=== PATIENT | male | born 1960 | race Caucasian/White ===

== ENCOUNTER 2017-09-30 11:43 | Inpatient (IN) | payer SELFPAY ==
--- NOTE | 2017-09-30 12:54 | RAD ---
HISTORY: Fall, right hip pain COMPARISONS: None VIEWS: 6, Frontal view of the pelvis with frontal and frog-leg views of the right hip with frontal views of the distal right femur FINDINGS: BONE DENSITY: Normal. BONES: There is a nondisplaced fracture of the right femoral neck. JOINTS: There is mild osteoarthritis of the hips. ALIGNMENT: There is no dislocation. SOFT TISSUES: There is peripheral arterial calcification. OTHER FINDINGS: Degenerative changes are noted of the spine. IMPRESSION: NONDISPLACED RIGHT FEMORAL NECK FRACTURE. PERIPHERAL ARTERIAL DISEASE.
--- NOTE | 2017-09-30 13:30 | RAD ---
HISTORY: Hip fracture COMPARISONS: May 05, 2014 VIEWS: 3: Frontal and lateral views of the chest. FINDINGS: CARDIOMEDIASTINAL SILHOUETTE: The cardiomediastinal silhouette is normal. ALESSANDRO: The alessandro are normal. PLEURA: The costophrenic angles are sharp. No pleural abnormalities are noted. LUNG PARENCHYMA: There is hyperinflation with flattening of the diaphragm and expansion of the AP diameter of the chest. ABDOMEN: The upper abdomen is clear. There is no subphrenic gas. BONES AND SOFT TISSUES: There is postsurgical change to the left scapula. OTHER: None. IMPRESSION: HYPERINFLATION, CONSISTENT WITH COPD. NO ACTIVE CARDIOPULMONARY DISEASE.
[2017-09-30 13:38] LABS: Hematocrit 34 % (42-52); Hemoglobin 11.8 g/dl (14.0-18.0); Mean Corpuscular HGB Conc 34 g/dl (31-36); Mean Corpuscular Hemoglobin 41 pg (27-31); Mean Corpuscular Volume 121 fL (80-94); Mean Platelet Volume 8.6 um3 (7.4-10.4); Platelet Count 412 10^3/ul (150-450); Red Blood Count 2.84 10^6/ul (4.0-5.4); Red Cell Distribution Width 16 % (10.5-15); White Blood Count 10.4 10^3/ul (3.5-10.8)
[2017-09-30 14:00] LABS: EGFR Non-African American 114.8 (>60)
[2017-09-30 14:25] LABS: ABS Basophils 0.1 10^3/ul (0-0.2); ABS Eosinophils 0.1 10^3/ul (0-0.6); ABS Lymphocytes 2.1 10^3/ul (1.0-4.8); ABS Monocytes 1.4 10^3/ul (0-0.8); ABS Neutrophils 6.7 10^3/ul (1.5-7.7); ABS Nucleated RBC 0 10^3/ul; Eosinophil % 0.6 % (0-6); Lymphocyte % 20.3 % (25-47); Nucleated Red Blood Cells % 0
[2017-09-30] MEDS: Heparin VIAL(*) 5000 UNITS/ML VIAL (FIVE THOUSAND) SUBCUT SCH ×2 (15:45→23:08)
[2017-09-30] MEDS ORDERED: Potassium Chlor TAB* 20 MEQ TAB.ER PO ONE (15:52)
[2017-09-30] MEDS ORDERED: Morphine VIAL* 4 MG/ML VIAL (1 ml vial) IV PRN (16:15)
[2017-09-30 16:47] LABS: INR 0.93 (0.77-1.02)
[2017-09-30] MEDS: oxyCODONE TAB* 5 MG TAB PO PRN ×2 (16:59→21:57)
[2017-09-30] MEDS ORDERED: LORazepam TAB(*) 1 MG PO SCH (17:00)
--- NOTE | 2017-09-30 17:56 | ED ---
Lawanda Pedraza Gabriel, scribed for Wilber Bojorquez MD on 09/30/17 at 1206 . Lower Extremity - HPI Summary HPI Summary: This patient is a 57 year old M [facility] s/p fall that occurred a week ago. Pt states he missed a step which caused him to fall down the rest of the stairs, injuring his right hip. He is currently ambulating with crutches and he states he waited so long to be seen due to lack of health insurance. The patient rates the pain 6/10 in severity. - History of Current Complaint Stated Complaint: FALL/RT HIP INJURY Time Seen by Provider: 09/30/17 12:01 Hx Obtained From: Patient Mechanism Of Injury: Fall From Height Of: Onset of Pain: Immediate Onset/Duration: Still Present Severity Initially: Moderate Severity Currently: Moderate Pain Intensity: 6 Pain Scale Used: 0-10 Numeric Timing: Constant Associated Signs And Symptoms: Positive: Negative - fever Able to Bear Weight: No - Allergies/Home Medications Allergies/Adverse Reactions: Allergies Allergy/AdvReac Type Severity Reaction Status Date / Time No Known Allergies Allergy Verified 05/05/14 14:57 Home Medications: Home Medications NK [No Home Medications Reported] 09/30/17 [History Confirmed 09/30/17] PMH/Surg Hx/FS Hx/Imm Hx Respiratory History: Denies: Hx Chronic Obstructive Pulmonary Disease (COPD) GI History: Denies: Hx Gall Bladder Disease History: Denies: Hx Chronic Renal Failure Musculoskeletal History: Denies: Hx Arthritis, Hx Rheumatoid Arthritis EENT History: Denies: Hx Deafness Neurological History: Denies: Hx Dementia, Hx Developmental Delay - Family History Known Family History: Negative: Renal Disease, Respiratory Disease, Seizure Disorder - Social History Occupation: Employed Part-time Lives: With Family Alcohol Use: None Substance Use Type: Reports: None Smoking Status (MU): Heavy Every Day Tobacco Smoker Review of Systems Negative: Fever Positive: Other - left hip pain All Other Systems Reviewed And Are Negative: Yes Physical Exam - Summary Physical Exam Summary: VITAL SIGNS: Reviewed. GENERAL: Patient is a well-developed and nourished male who is lying comfortable in the stretcher. Patient is not in any acute respiratory distress. HEAD AND FACE: No signs of trauma. No ecchymosis, hematomas or skull depressions. No sinus tenderness. EYES: PERRLA, EOMI x 2, No injected conjunctiva, no nystagmus. EARS: Hearing grossly intact. Ear canals and tympanic membranes are within normal limits. MOUTH: Oropharynx within normal limits. NECK: Supple, trachea is midline, no adenopathy, no JVD, no carotid bruit, no c- spine tenderness, neck with full ROM. CHEST: Symmetric, no tenderness at palpation LUNGS: Clear to auscultation bilaterally. No wheezing or crackles. CVS: Regular rate and rhythm, S1 and S2 present, no murmurs or gallops appreciated. ABDOMEN: Soft, non-tender. No signs of distention. No rebound no guarding, and no masses palpated. Bowel sounds are normal. EXTREMITIES: there is decreased ROM in the right hip secondary to pain, no deformity or ecchymosis. NEURO: Alert and oriented x 3. No acute neurological deficits. Speech is normal and follows commands. SKIN: Dry and warm Triage Information Reviewed: Yes Vital Signs On Initial Exam: Initial Vitals Temp Pulse Resp BP Pulse Ox 97.8 F 96 18 141/103 98 09/30/17 12:03 09/30/17 12:03 09/30/17 12:03 09/30/17 12:03 09/30/17 12:03 Vital Signs Reviewed: Yes Diagnostics - Vital Signs Vital Signs Temp Pulse Resp BP Pulse Ox 09/30/17 12:03 97.8 F 96 18 141/103 98 - Laboratory Lab Results: Lab Results 09/30/17 09/30/17 09/30/17 Range/Units 13:23 13:23 13:23 WBC 10.4 (3.5-10.8) 10^3/ul RBC 2.84 L (4.0-5.4) 10^6/ul Hgb 11.8 L (14.0-18.0) g/dl Hct 34 L (42-52) % MCV 121 H (80-94) fL MCH 41 H (27-31) pg MCHC 34 (31-36) g/dl RDW 16 H (10.5-15) % Plt Count 412 (150-450) 10^3/ul MPV 8.6 (7.4-10.4) um3 Neut % (Auto) 64.4 (38-83) % Lymph % (Auto) 20.3 L (25-47) % [place] % (Auto) 13.6 H (0-7) % Eos % (Auto) 0.6 (0-6) % Baso % (Auto) 1.1 (0-2) % Absolute Neuts (auto) 6.7 (1.5-7.7) 10^3/ul Absolute Lymphs (auto) 2.1 (1.0-4.8) 10^3/ul Absolute Monos (auto) 1.4 H (0-0.8) 10^3/ul Absolute Eos (auto) 0.1 (0-0.6) 10^3/ul Absolute Basos (auto) 0.1 (0-0.2) 10^3/ul Absolute Nucleated RBC 0 10^3/ul Nucleated RBC % 0 Macrocytosis 2+ Sodium 136 L (139-145) mmol/L Potassium 3.3 L (3.5-5.0) mmol/L Chloride 102 (101-111) mmol/L Carbon Dioxide 28 (22-32) mmol/L Anion Gap 6 (2-11) mmol/L BUN 26 H (6-24) mg/dL Creatinine 0.71 (0.67-1.17) mg/dL Est GFR ( Amer) 147.6 (>60) Est GFR (Non-Af Amer) 114.8 (>60) BUN/Creatinine Ratio 36.6 H (8-20) Glucose 83 (70-100) mg/dL Lactic Acid 1.0 (0.5-2.0) mmol/L Calcium 8.6 (8.6-10.3) mg/dL Magnesium 1.4 L (1.9-2.7) mg/dL Iron 33 L (50-212) ug/dL TIBC 199 L (250-450) mcg/dL % Saturation 17 (15-55) % Unsat Iron Binding 166 ug/dL Transferrin 142 L (203-362) mg/dL Ferritin 383.1 H (24-336) ng/mL Total Bilirubin 0.50 (0.2-1.0) mg/dL AST 19 (13-39) U/L ALT 9 (7-52) U/L Alkaline Phosphatase 105 H (34-104) U/L C-Reactive Protein 2.99 (< 5.00) mg/L Total Protein 6.5 (6.4-8.9) g/dL Albumin 3.0 L (3.2-5.2) g/dL Globulin 3.5 (2-4) g/dL Albumin/Globulin Ratio 0.9 L (1-3) Prealbumin 14 L (18-38) mg/dL Vitamin B12 330 (180-914) pg/mL Folate 4.24 (>3.99) ng/mL Result Diagrams: 09/30/17 13:23 09/30/17 13:23 Lab Statement: Any lab studies that have been ordered have been reviewed, and results considered in the medical decision making process. - Radiology femur xray Radiology Interpretation Completed By: Radiologist - NONDISPLACED RIGHT FEMORAL NECK FRACTURE. PERIPHERAL ARTERIAL DISEASE. ED physician has reviewed this radiology report. hip/pelvis xray Radiology Interpretation Completed By: Radiologist - NONDISPLACED RIGHT FEMORAL NECK FRACTURE. PERIPHERAL ARTERIAL DISEASE. ED physician has reviewed this radiology report. CXR Radiology Interpretation Completed By: Radiologist - HYPERINFLATION, CONSISTENT WITH COPD. NO ACTIVE CARDIOPULMONARY DISEASE. ED physician has reviewed this radiology report. - EKG 13:32 Cardiac Rate: NL EKG Rhythm: Sinus Rhythm - at 77 BPM EKG Interpretation: no ST elevations EKG Comparison: No Significant Change - Similar 05-05-14 Lower Extremity Course/Dx - Course Assessment/Plan: This patient is a 57-year-old male who presents to the emergency department with the complaint of left hip pain. X-ray of the hip impression: Nondisplaced right femoral neck fracture. I discussed the case with Dr. Holt who accepted the patient for admission. I also discussed the case with Dr. Jc from orthopedics - Diagnoses Provider Diagnoses: Femur fracture, right - Physician Notifications Discussed Care Of Patient With: Aletha Holt Time Discussed With Above Provider: 13:40 Instructed by Provider To: Admit As Observation - 1545 We discussed patient care with Dr. Jc and they have agreed to come consult on the pt. Discharge - Sign-Out/Discharge Documenting (check all that apply): Discharge/Admit/Transfer - [facility] to [facility] - Discharge Plan Condition: Fair Disposition: ADMITTED TO [facility] - Billing Disposition and Condition Condition: FAIR Disposition: [facility] The documentation as recorded by the Lawanda mojica Gabriel accurately reflects the service I personally performed and the decisions made by me, Wilber Bojorquez MD.
[2017-09-30] MEDS ORDERED: Magnesium Sulfate IV* 3 GM in NS 0.9% 100 ML* 100 ML IVPB ONE (18:30)
--- NOTE | 2017-09-30 20:15 | HP ---
HISTORY AND PHYSICAL: DATE OF ADMISSION: 09/30/17 PROVIDER: Ceferino Foote NP ATTENDING PHYSICIAN: Dr. Yañez * (report dictated by Ceferino Foote NP). PRIMARY CARE PROVIDER: [facility]. CHIEF COMPLAINT: Right hip pain. HISTORY OF PRESENT ILLNESS: Mr. Kwong is a 57-year-old male with a past medical history of hypertension, tobacco abuse, who presents to the emergency department today with complaint of right hip pain with a fall approximately 7 to 9 days ago, found to have a nondisplaced right femoral neck fracture. The patient reports that he was walking downstairs where he missed a step, caused him to fall down the rest of the stairs landing down on his right hip. He has been ambulating with crutches and was hoping it would get better. Due to the fact that he does not have health insurance, he was concerned to the come to the emergency department. Today, he presented due to continued pain, reporting right hip pain 8/10 in severity. He denies passing out during the fall. No history of syncope. Denies cardiac history other than his hypertension, which he currently does not take medication for. He reports that he was on medication, but due to his blood pressures being consistently systolically around the 140s, he states that he was taken off the medication due to he was experiencing hypotension. He reports tobacco abuse smoking approximately a pack a day. Otherwise, he states that he has been in good health and has not been hospitalized recently. He reports that in the last 2 to 3 years, he has lived in [place] and [place], and now is currently living with his mother. He denies ever having shortness of breath or chest pain at rest or with exertion. Again, no history of CHF or history of [place]. PAST MEDICAL HISTORY: 1. Hypertension. 2. Tobacco abuse. PAST SURGICAL HISTORY: 1. Cataract surgery. 2. Appendectomy. 3. Shoulder repair. CURRENT MEDICATIONS: None. ALLERGIES: No known allergies. FAMILY HISTORY: His father had history of hypertension and history of stomach cancer and which he is decreased at the age of 67. Mother has history of hypertension. SOCIAL HISTORY: The patient reports a [id number] history, smoking approximately a pack a day. He reports he drinks beer a couple of times a week and occasional "shots" of alcohol. He is currently living with his mother. He has a daughter, who currently lives in [place]. He lists his mother, Rajni Kwong, as the healthcare proxy. Her number is [phone]. REVIEW OF SYSTEMS: A 14-point review of systems was performed. All the pertinent positives and negatives are mentioned in the history of present illness. Otherwise are negative. PHYSICAL EXAMINATION GENERAL APPEARANCE: A thin, 57-year-old male, sitting up in bed, alert and oriented x3, in no acute distress. VITAL SIGNS: Temperature 98.1, heart rate 72, respirations 18, O2 sat 99% on room air, blood pressure 148/74. HEENT: Head is normocephalic, atraumatic. Pupils are equal and reactive to light. Oropharynx is clear. Moist mucous membranes. NECK: Supple. LUNGS: Clear to auscultation bilaterally. Good aeration throughout. CARDIAC: S1, S2. Regular rate and rhythm. No murmur, rub, or gallop appreciated. No lower extremity edema noted. ABDOMEN: Soft, nontender, nondistended. Normal bowel sounds throughout. EXTREMITIES: The patient has his right lower extremity guarded. He is holding it at a slight angle and does not want to straighten it due to pain. extremities, he has full range of motion. 2+ DP pulses bilaterally. NEURO: Cranial nerves II through XII are grossly intact. SKIN: The patient has noted ecchymosis on his lower aspect of his arms bilaterally in different stages of healing. Otherwise, other skin is warm, pink , dry, and intact. No open areas noted. DIAGNOSTIC STUDIES/LAB DATA: WBC is 10.4, RBC 2.84, Hgb 11.8, Hct 34, MCV 121 , MCH 41, MCHC 34, RDW 16, platelet count 412. Sodium 136, potassium 3.3, chloride 102, carbon dioxide 28, anion gap 6, BUN 26, creatinine 0.71, glucose 83, lactic acid 1.0, calcium 8.6. Total bilirubin 0.50, AST 19, ALT 9, alkaline phosphatase 105. C-reactive protein 2.99, total protein 6.5, albumin 3.0. Chest x-ray, impression: Hyperinflation consistent with COPD, no active cardiopulmonary disease. Hip/pelvis x-ray, impression: Nondisplaced right femoral neck fracture. Peripheral arterial disease. EKG: Sinus rhythm with a right bundle branch block with a rate of 177. In comparison to prior EKG, no acute ST changes noted. ASSESSMENT AND PLAN: Mr. Kwong is a 57-year-old male with a past medical history of hypertension, tobacco abuse, who presents to the emergency department with complaint of right hip pain with report of a fall approximately 7 to 9 days ago falling down stairs landing on his right hip, now found to have a nondisplaced right femoral neck fracture. 1. Femoral neck fracture. The patient will be admitted to short stay surgical unit. The orthopedic team has been consulted. Pain management, bowel regimen. The patient's revised cardiac risk index for preoperative risk is 0.4% of major cardiac event. As far as further cardiac workup, he is optimized from a cardiac standpoint to proceed with surgery. The patient is noted to have diffuse ecchymosis on his bilateral upper extremities. Plan to check INR/PTT and we will add these on to ED labs. The patient's MCV is noted to be quite elevated. I question if he is being honest about how much he drinks as it is noted his albumin is low, he appears malnourished and his electrolytes are abnormal. We will add on alcohol level to his ED labs. The patient does only report that he drinks a couple of times a week. We will monitor for signs of withdrawal, and place him on the [place] protocol at this time. 2. Hypertension, uncontrolled. The patient reports that normally his blood pressure is systolically in the 140s to 150s and does not take medication due to it making him "hypotensive." Plan to start the patient on Norvasc 5 mg p.o. daily and most likely, he will need to be discharged home with close followup with his primary care provider. 3. Tobacco abuse. The patient has refused nicotine supplementation. Smoking cessation. 4. Electrolyte abnormalities. Replace potassium. Add on magnesium level. Recheck electrolytes in the morning. 5. Anemia. We will add on iron studies and B12 level. 6. DVT prophylaxis. Heparin subcu. 7. Code status. Full code. TIME SPENT: Approximately 60 minutes was spent on this admission. CEFERINO FOOTE, NICOLE [id number]/[facility] #: [id number] LUIGI
[2017-09-30] MEDS: Acetaminophen TAB* 325 MG PO PRN (21:57)
[2017-09-30] MEDS ORDERED: Heparin VIAL(*) 5000 UNITS/ML VIAL (FIVE THOUSAND) SUBCUT ONE (23:00)
--- NOTE | 2017-10-01 01:18 | CONS ---
CONSULTATION REPORT: DATE OF CONSULT: 09/30/17 ATTENDING PHYSICIAN: Edy Ma MD CHIEF COMPLAINT: Right hip pain. HISTORY OF PRESENT ILLNESS: Briefly, Gregg Kwong is a 57-year-old right- hand dominant male who fell down the stairs approximately 1 week ago. He states that he had a lot of pain, but he was able to get by with crutches. The pain started to get a lot worse and he came to the ER for evaluation today. In the ER, he was diagnosed with a mildly displaced femoral neck fracture. He is admitted to Medicine for the workup. PAST MEDICAL HISTORY: Per the patient, he tells me he has hypertension. PAST SURGICAL HISTORY: Appendectomy as well as left shoulder surgery. History of cataract removal. MEDICATIONS: He states he has been taking aspirin for his hip pain. ALLERGIES: None. SOCIAL HISTORY: He is unemployed. He lives with his mother. He is right-hand dominant. 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 He smokes about 1 pack per day. He drinks on the weekends. He did not quantify how much he drinks. FAMILY HISTORY: Significant for cancer in his father, stomach cancer, who had . Mother has high blood pressure; she is living. He has 4 brothers and 2 sisters. REVIEW OF SYSTEMS: A 14-point review of systems was reviewed with the patient, significant for easy bruising. No shortness of breath or chest pain. He does endorse right hip pain and difficulty weightbearing. He denies any numbness or tingling. No fevers or chills. Otherwise, remainder of 14-point review of systems is negative. PHYSICAL EXAM: Temperature 98.7, pulse 80, respiratory rate 17, O2 is 100% on room air, blood pressure 139/100. He is in no acute distress. He is well developed and well nourished. He is pleasant, alert and oriented, and cooperative for the exam. EOMI. Chest is clear. He is respiring comfortably. Heart is regular rate and rhythm. Abdomen is soft and nontender. Examination of the right hip demonstrates the skin is intact. There is no erythema or warmth. He has pain on internal and external rotation. He is able to flex to about 45 degrees comfortably. He can flex and extend his knee and ankle. He is sensate to light touch about the first dorsal web space; medial, lateral, dorsal and plantar foot. He has 2+ PT pulse. His calf is soft and nontender. DIAGNOSTIC STUDIES/LAB DATA: X-rays were reviewed that demonstrate a mildly displaced femoral neck fracture with no evidence of arthritis. Full length femur films were also reviewed that demonstrates no propagation of the fracture , no distal fracture, no masses. Labs: White blood cell 10.4, hematocrit of 34, platelet count of 412. INR is pending. Sodium is 136, potassium 3.3, chloride 102, carbon dioxide 28, BUN 26 , creatinine 0.71, glucose 83. Lactic acid 1. Alk phos 105. CRP is 2.99. Albumin 3.0. Other labs are pending. ASSESSMENT AND PLAN: Gregg Kwong is a 57-year-old male who fell approximately 1 week ago down the stairs and sustained a right hip fracture. I explained to the patient that typically this would have been treated rather urgently with open reduction and internal fixation. Because it is a week out, we talked about open reduction and internal fixation versus a total hip arthroplasty. I explained that open reduction internal fixation may not heal well. He did disrupt his vascular supply and I would pin him in situ. I would not be sure how well he would do afterwards. He could have persistent pain. So , I talked about total hip replacement, which is an option for him to get him back to mobilizing well, and because he is a community ambulator, he will do well most likely. We also talked about how I would be careful about being aggressive with activities. We also talked about smoking cessation, as he does have an extensive smoking history. We talked about risks and benefits of surgery. Risks include but not limited to bleeding; infection; damage to nerves , vessels, and surrounding structures; wound nonhealing; persistent pain; need for further surgery; scarring; stiffness; incomplete relief of symptoms; recurrent fracture; dislocation; risks of DVT; risks of anesthesia. We talked about limb length and equality as well. He verbalized understanding. Questions were invited and answered. Discussed with the medicine team that he is a candidate for total hip arthroplasty. I have asked my partner, Dr. Snow, who will take care of this tomorrow as the patient is cleared. We will plan for surgery tomorrow again with Dr. Snow which would be right total hip arthroplasty. [id number]/[facility] #: [id number] [facility]ONE HEALTHLatisha
[2017-10-01] MEDS: oxyCODONE TAB* 5 MG TAB PO PRN (05:10)
[2017-10-01 06:15] LABS: ABS Basophils 0.3 10^3/ul (0-0.2); ABS Eosinophils 0.2 10^3/ul (0-0.6); ABS Lymphocytes 2.5 10^3/ul (1.0-4.8); ABS Monocytes 1.7 10^3/ul (0-0.8); ABS Neutrophils 4.8 10^3/ul (1.5-7.7); ABS Nucleated RBC 0 10^3/ul; Eosinophil % 2.4 % (0-6); Hematocrit 31 % (42-52); Hemoglobin 10.8 g/dl (14.0-18.0); Lymphocyte % 26.5 % (25-47); Mean Corpuscular HGB Conc 35 g/dl (31-36); Mean Corpuscular Hemoglobin 42 pg (27-31); Mean Corpuscular Volume 120 fL (80-94); Mean Platelet Volume 8.6 um3 (7.4-10.4); Nucleated Red Blood Cells % 0; Platelet Count 371 10^3/ul (150-450); Red Cell Distribution Width 16 % (10.5-15); White Blood Count 9.6 10^3/ul (3.5-10.8)
[2017-10-01 06:26] LABS: EGFR Non-African American 120.6 (>60)
[2017-10-01] MEDS ORDERED: Famotidine IV* 10 MG/ML 2 ML (20 mg) IV ONE (07:00)
[2017-10-01] MEDS: amLODIPine TAB* 5 MG PO SCH (08:56)
[2017-10-01] MEDS: Thiamine TAB* 100 MG TAB PO SCH (08:56)
[2017-10-01] MEDS: Multivitamins/Minerals TAB PO SCH (08:56)
[2017-10-01] MEDS: Folic Acid TAB* 1 MG PO SCH (08:56)
[2017-10-01] MEDS ORDERED: Buffered Lidocaine 0.9% SYRIN* 5 ML/SYR SYRINGE INTRADERM ONE (13:02)
[2017-10-01] MEDS ORDERED: Dexamethasone IV* 4 MG/ML 1 ML (4 MG) IV SLOW PU ONE (13:02)
[2017-10-01] MEDS ORDERED: Levalbuterol 0.63MG/3ML NEB* UNIT OF USE INH ONE ×2 (13:02→13:09)
[2017-10-01] MEDS ORDERED: Ondansetron ODT TAB* 4 MG PO ONE (13:07)
[2017-10-01] MEDS ORDERED: Dexamethasone IV* 4 MG/ML 1 ML (4 MG) ONE (13:09)
[2017-10-01] MEDS ORDERED: Ondansetron ODT TAB* 4 MG ONE (13:09)
--- NOTE | 2017-10-01 13:14 | RAD ---
HISTORY: Right hip fracture COMPARISONS: Plain film dated September 30, 2017 TECHNIQUE: Multiple contiguous axial CT images are obtained of the pelvis, with coronal and sagittal multiplanar reconstructions, without intravenous contrast administration. FINDINGS: BONE DENSITY: Normal. BONES: Again noted is a nondisplaced fracture through the right femoral neck. JOINTS: There is mild osteoarthritis of the hips. MUSCULATURE: Unremarkable ALIGNMENT: There is no dislocation. SOFT TISSUES: There is atherosclerosis of the abdominal aorta. OTHER FINDINGS: There is anterolateral marginal osteophyte formation at L4-L5 with sclerotic reactive endplate changes. IMPRESSION: NONDISPLACED RIGHT FEMORAL NECK FRACTURE.
--- NOTE | 2017-10-01 13:57 | PN ---
Subjective Date of Service: 10/01/17 Objective Active Medications: Acetaminophen (Tylenol Tab*) 650 mg PO Q4H PRN Amlodipine Besylate (Norvasc Tab*) 5 mg PO DAILY [facility] Dexamethasone Sodium Phosphate (Decadron Iv*) 8 mg IV SLOW PU ONCE ONE Docusate Sodium (Colace Cap*) 100 mg PO DAILY PRN Folic Acid (Folvite Tab*) 1 mg PO DAILY [facility] Sodium Chloride (Ns 0.9% 1000 Ml*) 1,000 mls @ 75 mls/hr IV PER RATE PAM Lactated Ringer's (Lactated Ringers 1000 Ml Bag*) 1,000 mls @ 125 mls/hr IV PER RATE PAM Levalbuterol HCl (Xopenex 0.63mg/3ml Neb*) 0.63 mg INH ONCE ONE Lidocaine/Sodium Bicarbonate (Buffered Lidocaine 0.9% Syrin*) 0.2 ml INTRADERM ONCE ONE Lorazepam (Ativan Tab(*)) 0 - 6 mg PO .PER [facility] PROTOCOL [facility] Morphine Sulfate (Morphine Vial*) 2 mg IV Q4H PRN Multivitamins/Minerals (Theragran/Minerals Tab*) 1 tab PO DAILY [facility] Ondansetron HCl (Zofran Odt Tab*) 4 mg PO ONCE ONE Oxycodone HCl (Roxycodone Tab*) 5 mg PO Q4H PRN Thiamine HCl (Vitamin B-1 Tab*) 100 mg PO DAILY [facility] Vital Signs: Temp Pulse Resp BP Pulse Ox 97.4 F 63 16 124/75 99 10/01/17 11:16 10/01/17 11:16 10/01/17 11:16 10/01/17 11:16 10/01/17 11:16 Oxygen Devices in Use Now: None Result Diagrams: 10/01/17 05:39 10/01/17 05:39 Additional Lab and Data: . Assess/Plan/Problems-Billing Assessment: Mr. Kwong is a 57 yo M with a PMH of hypertension and tobacco abuse who was admitted on 09/30/17 with a right hip fracture. - Patient Problems (1) Closed right hip fracture Comment: - Plan for surgery today with Dr. Snow. - Pain meds prn. - PT/OT starting tomorrow. - Monitor H/H. (2) Hypertension Comment: - SBP 120s. - Continue amlodipine, started on admission. (3) Alcohol abuse Comment: - ? if patient abuses alcohol beyond what he stated on admission. - Continue WAM protocol, folate and thiamine for now. (4) Anemia Comment: - Hgb 10.8 today, MCV 120. - Vitamin B12, folate levels normal. Iron low but % saturation normal, ferritin elevated but difficult to interpret in setting of recent fracture. Check stool occult blood. (5) Tobacco abuse (6) DVT prophylaxis Comment: - Per ortho. (7) Full code status Comment:
[2017-10-01] MEDS ORDERED: Heparin VIAL(*) 5000 UNITS/ML VIAL (FIVE THOUSAND) SUBCUT SCH (14:00)
[2017-10-01] MEDS ORDERED: ceFAZolin 2 GM PREMIX (*) 2 GM/50 ML BAG IVPB ONE ×2 (14:03→15:02)
[2017-10-01] MEDS ORDERED: Lidocaine 2% PF * 5 ML VIAL ONE (14:25)
[2017-10-01] MEDS ORDERED: fentaNYL* 50 MCG/ML 2 ML VIAL (100 MCG VIAL) ONE (14:58)
[2017-10-01] MEDS ORDERED: Midazolam* 1 MG/ML 5 ML VIAL (5 MG) ONE ×2 (14:58→16:14)
[2017-10-01] MEDS ORDERED: ROPIVACAINE 5 MG/ML 30 ML BTL (0.5%) ONE (15:10)
[2017-10-01] MEDS ORDERED: Ropivacaine (OR use only) 2 MG/ML 10 ML ONE (15:11)
[2017-10-01] MEDS ORDERED: Gentamicin ADULT (*) 40 MG/ML VIAL ONE (17:00)
[2017-10-01] MEDS ORDERED: Glycopyrrolate IV* 0.2 MG/ML 1 ML VIAL ONE (17:19)
[2017-10-01] MEDS ORDERED: Midazolam* 1 MG/ML 10 ML VIAL (10 MG) ONE (17:38)
[2017-10-01] MEDS ORDERED: ceFAZolin 1 GM in Dextrose (*) 1 GM/50 ML BAG IVPB ONE (17:53)
[2017-10-01] MEDS ORDERED: Metoprolol Tartrate IV* 1 MG/ML 5 ML VIAL ONE (18:11)
[2017-10-01] MEDS ORDERED: HYDROmorphone INJ* 1 MG/ML CARPUJECT SYRINGE IV PRN (18:13)
[2017-10-01] MEDS ORDERED: Ondansetron INJ* 2 MG/ML VIAL IV PRN (18:13)
[2017-10-01] MEDS ORDERED: Naloxone* 0.4 MG/ML 1 ML VIAL IV PRN (18:13)
[2017-10-01] MEDS ORDERED: fentaNYL* 50 MCG/ML 2 ML VIAL (100 MCG VIAL) IV PRN (18:13)
[2017-10-01] MEDS ORDERED: DiMENhydriNATE IV* 50 MG/ML VIAL IV PUSH PRN (18:13)
--- NOTE | 2017-10-01 18:15 | PN ---
Progress Note - Progress Note Date of Service: 10/01/17 Note: Chart reviewed. Patient is a 57 yo male with PMH of hypertension who was admitted on 09/30/17 with a right femoral neck fracture. Patient not available at the time of my assessment as he was in the operating room this afternoon. Hospital Medicine will be available overnight for any questions or concerns. Plan to eval again in AM.
--- NOTE | 2017-10-01 19:43 | RAD ---
INDICATION: Right total hip arthroplasty COMPARISON: CT abdomen pelvis October 01, 2017 TECHNIQUE: A single intraoperative crosstable lateral was obtained of the right hip FINDINGS: The femoral shaft component of the hip prosthesis is anatomically aligned. The acetabular cup appears to be in position. The femoral head prosthesis is not yet seen. Remaining visualized bones are intact and appropriately aligned. IMPRESSION: Anatomic alignment of the components of the right hip prosthesis installed at the time of the image.
--- NOTE | 2017-10-01 20:17 | RAD ---
INDICATION: Status post right total hip arthroplasty COMPARISON: CT pelvis October 01, 2017 TECHNIQUE: 3 views of the right hip were obtained. FINDINGS: The recently installed right hip prosthesis is anatomically aligned in the AP and lateral projections. There is no evidence of periprostatic fracture. Remaining visualized bones are intact and appropriately aligned. Incidental note is made of coarse atherosclerotic calcification overlying the bilateral visualized femoral arteries. IMPRESSION: 1. Anatomic alignment of right hip prosthesis. 2. Incidentally noted is coarse atherosclerotic calcification overlying the bilateral femoral arteries.
[2017-10-01] MEDS: Acetaminophen TAB* 325 MG PO PRN (22:40)
[2017-10-01] MEDS: NS 0.9% 1000 ML* 1,000 ML IV SCH ×2 (22:41)
[2017-10-02] MEDS: oxyCODONE TAB* 5 MG TAB PO PRN ×4 (01:02→17:50)
--- NOTE | 2017-10-02 01:05 | CONS ---
CONSULTATION REPORT: DATE OF CONSULT: 10/01/17 CHIEF COMPLAINT: Right hip pain. HISTORY OF PRESENT ILLNESS: Mr. Kwong is a 57-year-old gentleman, who fell down some stairs approximately 1 week ago. He reports that he injured his right hip and had 8/10 pain. He did not present for medical care because of lack of insurance and financial reasons. He used crutches to ambulate. After 1 week, the pain became severe, 10/10 pain. He came to [facility] Emergency Room for evaluation and was diagnosed with a displaced femoral neck fracture. He was admitted to the hospitalist group for preoperative workup. My partner, Dr. Ma, was on-call and did consult me to discuss total hip arthroplasty with the patient due to the delayed presentation and the patient's age. PAST MEDICAL HISTORY: Hypertension, question of alcohol abuse, tobacco abuse. PAST SURGICAL HISTORY: Cataract excision, appendectomy, prior shoulder surgery. HOME MEDICATIONS: None. ALLERGIES: No known drug allergies. No known latex allergy. FAMILY HISTORY: Hypertension and cancer. SOCIAL HISTORY: The patient smokes 1 pack of cigarettes per day. He drinks beer a couple of times a week and occasional shots of alcohol. He lives with his mother. He has a daughter who lives in [place]. He normally ambulates independently. He is currently not working. REVIEW OF SYSTEMS: Fourteen systems are reviewed with the patient today. Positive for right hip pain. Negative for fevers, chills, chest pain, shortness of breath, nausea, vomiting, headache, or dizziness. Otherwise, the patient reports review of systems is negative or not relevant. PHYSICAL EXAM: Vitals: Temperature 97.5, pulse 57, blood pressure 127/82. General: The patient is a thin male, in no apparent distress, alert and oriented x3, pleasant mood and appropriate affect. Gait is not assessed. HEENT : Atraumatic, normocephalic. Pupils are equal and reactive to light. Chest: Unlabored breathing. Bilateral upper extremities: His skin is intact with scattered ecchymoses. He forward flexes the shoulders to 140 degrees without pain. Right lower extremity: He has the hip flexed to 45 degrees. Any rotation of the hip causes severe pain. Thigh is soft and compressible. Distally, neurovascularly intact with dorsiflexion, plantarflexion and EHL. He has full sensation to light touch in all nerve distributions and a 2+ palpable DP pulse. Left lower extremity: The patient flexes the hip up to 100 degrees without any pain. Distally, neurovascularly intact. DIAGNOSTIC STUDIES/LAB DATA: Labs from 10/01/17 show white blood cells 9.6, hematocrit 31, platelets 371,000. INR 0.93, APTT 39.4. Sodium 133, potassium 3.6, BUN and creatinine 21 and 0.68, calcium 8. Radiographs: Multiple plain films of the hip and femur show a displaced femoral neck fracture. Question of an acetabular fracture on one of the pelvic views. CT of the pelvis is obtained, which excludes a fracture of the acetabulum. ASSESSMENT AND PLAN: Mr. Kwong is a 57-year-old gentleman 1 week status post fall with delayed presentation of a right displaced femoral neck fracture. I am asked to see the patient by my colleague. Today, the patient and I discussed at length that he has the option of open reduction and internal fixation of this fracture versus total hip arthroplasty. After giving the patient the risks and benefits of each surgery, the patient would like to proceed with right total hip arthroplasty. He understands the risks of surgery include but are not limited to bleeding, infection, damage to nearby structures , continued pain, need for further surgery, intraoperative fracture, nerve palsy , hardware failure or loosening, dislocation, leg length discrepancy, stroke, heart attack, blood clot, and . He wishes to proceed. Due to a history of possible alcohol abuse, I will be using the MDM implant for greater stability. The patient understands this and agrees. He will be n.p.o. , on bedrest until the surgery. [id number]/[facility] #: [id number] [facility]
[2017-10-02] MEDS: ceFAZolin 1 GM in Dextrose (*) 1 GM/50 ML BAG IVPB SCH ×3 (01:58→17:49)
[2017-10-02] MEDS: Acetaminophen TAB* 325 MG PO PRN ×3 (03:59→17:51)
[2017-10-02] MEDS ORDERED: NS 0.9% 1000 ML* 1,000 ML IV SCH (06:23)
[2017-10-02 06:59] LABS: ABS Basophils 0.1 10^3/ul (0-0.2); ABS Eosinophils 0 10^3/ul (0-0.6); ABS Lymphocytes 0.9 10^3/ul (1.0-4.8); ABS Monocytes 2.2 10^3/ul (0-0.8); ABS Neutrophils 10.1 10^3/ul (1.5-7.7); ABS Nucleated RBC 0 10^3/ul; Eosinophil % 0 % (0-6); Hematocrit 28 % (42-52); Hemoglobin 9.4 g/dl (14.0-18.0); Lymphocyte % 6.5 % (25-47); Mean Corpuscular HGB Conc 34 g/dl (31-36); Mean Corpuscular Hemoglobin 41 pg (27-31); Mean Corpuscular Volume 121 fL (80-94); Mean Platelet Volume 8.5 um3 (7.4-10.4); Nucleated Red Blood Cells % 0.1; Platelet Count 357 10^3/ul (150-450); Red Blood Count 2.29 10^6/ul (4.0-5.4); Red Cell Distribution Width 16 % (10.5-15); White Blood Count 13.3 10^3/ul (3.5-10.8)
[2017-10-02 07:07] LABS: EGFR Non-African American 122.7 (>60)
--- NOTE | 2017-10-02 08:02 | OP ---
DATE OF OPERATION: 10/01/17 - ROOM #339 DATE OF : 62 SURGEON: Markie Lovelace MD ANESTHESIOLOGIST: Dr. Shukla. ANESTHESIA: Spinal. PRE-OP DIAGNOSIS: Urinary retention. POST-OP DIAGNOSES: Urinary retention, urethral stricture. OPERATIVE PROCEDURE: Cystoscopy, internal urethrotomy, and placement of [place] Gracia catheter. INDICATION: Gregg Kwong is a 57-year-old gentleman who had been admitted for a right hip fracture. He was on the operating table to have a right total hip replacement and I was called because of inability to place a Gracia catheter in spite of multiple attempts with some resulting bleeding. OPERATIVE FINDINGS: 1. Strictures mid to proximal bulbar urethra with multiple false passages. 2. Cloudy residual urine in the bladder with multiple bladder diverticula. POSTOPERATIVE CONDITION: Stable. CATHETER: 22-[place] tip Gracia. DESCRIPTION OF PROCEDURE: Patient was placed in dorsal lithotomy position. Sequential compression devices were in place and functioning. Initial cystoscopy revealed a normal distal urethra. In the mid to proximal bulbar urethra, multiple false passages were noted and there was a fairly narrow stricture noted. Using an internal urethrotome, the stricture was incised at the 12 o'clock position and then a wire could be advanced more proximally. Cystoscopy was then performed after completion of the urethrotomy and cystoscopy revealed cloudy residual urine within the bladder and multiple bladder diverticula including a large one on the right and left sides of the bladder. Visualization of the bladder was somewhat suboptimal because of the cloudy residual urine and the findings of chronic inflammation. The bladder was emptied and irrigated and a 22-[place] Gracia was introduced without difficulty. The plan is to leave the Gracia catheter in for about a week and for the patient to have outpatient followup in my office afterwards possibly for a repeat cystoscopy as an outpatient. [id number]/[facility] #: [id number] MTDD
[2017-10-02] MEDS: Multivitamins/Minerals TAB PO SCH (08:49)
[2017-10-02] MEDS: Folic Acid TAB* 1 MG PO SCH (08:49)
[2017-10-02] MEDS: amLODIPine TAB* 5 MG PO SCH (08:49)
[2017-10-02] MEDS: Thiamine TAB* 100 MG TAB PO SCH (08:49)
--- NOTE | 2017-10-02 11:21 | OP ---
DATE OF OPERATION: 10/01/17 - ROOM #339 DATE OF : 62 SURGEON: Charmaine Snow MD COMPANY LABORER: JOSE ROBERTO Lopez. Ms. Goodwin did help throughout the procedure with preparation of the leg, wound retraction, and manipulation of the hip. ANESTHESIOLOGIST: Dr. Shukla. ANESTHESIA: Spinal. PRE-OP DIAGNOSIS: Displaced right femoral neck fracture. POST-OP DIAGNOSIS: Displaced right femoral neck fracture. OPERATIVE PROCEDURE: Right total hip arthroplasty. COMPLICATIONS: No complications related to the hip. Upon placement of the Gracia, urethral strictures were noted and Dr. Lovelace of Urology was consulted for cystoscopy and placement of the catheter. Please see his note. ESTIMATED BLOOD LOSS: 300 mL. SPECIMEN: Femoral head and acetabular reamings sent to Pathology. HARDWARE USED: [place] uncemented total hip arthroplasty hardware. For the cup , a 54E Tritanium cluster hole shell, two 20-mm length cancellous bone screws. For the liner, an MDM cement-less liner 42E. For the stem, an Accolade TMZF size 5.5 with a 132-degree neck. For the head, a Biolox delta ceramic V40 femoral head 28 +0 with a 28/48/42E [place] MDM X3 insert. BRIEF HISTORY/INDICATIONS: Mr. Kwong is a 57-year-old gentleman who fell down some stairs about one week ago injuring the right hip. He did not seek medical attention due to lack of insurance and used crutches. Pain became unbearable and he presented to [facility] Emergency Room with a displaced femoral neck fracture, which was 1 week old. Due to the patient's age and the week delay in treatment, the patient was given different surgical options. He chose to have right total hip arthroplasty. Informed consent was obtained from the patient. He understood the risks of surgery included, but were not limited to bleeding, infection, damage to nearby structures, continued pain, need for further surgery, intraoperative fracture, nerve palsy, hardware failure or loosening, dislocation, leg length discrepancy, stroke, heart attack , blood clot, and . He wished to proceed. INTRAOPERATIVE FINDINGS: Intraoperatively, the patient was noted to have significant osteopenia. He had a displaced femoral neck fracture with significant comminution, he had moderate degenerative changes of the acetabulum with osteophyte formation and some cartilage loss. DESCRIPTION OF PROCEDURE: Mr. Kwong was identified in the preanesthesia unit. His right lower extremity was marked as the correct operative side. Informed consent was signed and placed in the chart. The patient was taken to the operating room and placed under spinal anesthesia without difficulty. A Gracia catheter was placement was unsuccessful. Dr. Lovelace of Urology was consulted. He used cystoscopy and placed a Gracia catheter. Next, the patient was placed in left lateral decubitus position on the peg board. All bony prominences were well padded. Right lower extremity was prepped and draped in usual sterile fashion. Preop time-out was made to correctly identify the patient 's side and site. Appropriate perioperative antibiotics were given within 1 hour of incision. A 12-cm posterior hip incision was made with a 10 blade and carried down to the lateral fascial layer. The lateral fascial layer was incised in line with the skin incision. Charnley retractor was placed. The piriformis and conjoint tendons were elevated off the posterolateral femur with electrocautery and tagged with #5 Ethibond. Electrocautery was also used to make a catheter flap in the posterolateral corner and this was also tagged to #5 Ethibond. The fracture hematoma was encountered. The femoral neck fracture was easily visualized and was clearly displaced. Proximal femur was carefully prevented and oscillating saw was used to make a femoral neck clean-up cut. Comminuted bony pieces were carefully removed. The femur was retracted anteriorly. Corkscrew was used to remove the femoral head. Acetabulum was noted to have some moderate degenerative changes. After appropriate placement of retractors, the acetabulum was easily visualized. Long-handled knife was used to sharply remove the acetabular labrum. Acetabulum was sequentially reamed up to a size 53. Bleeding subchondral bone bed was obtained. 53 trial had excellent fit. Tritanium cluster hole shell 54E was chosen as the final implant. This was impacted into the acetabulum without difficulty. The cup was stable with appropriate anteversion and abduction angle. Two screws were placed in the superior posterior quadrant for extra stability. These were both length of 20 mm. An MDM cement-less 42E was then chosen. This was impacted into the acetabulum without difficulty. Stability of the liner was checked and rechecked and noted to be stable. Attention was turned to preparation of the femoral canal. A femoral canal finder was used to enter the proximal femur. The femur was sequentially broached up to a size 5.5. A 132 neck trial was placed as well as a 28 +0 head trial with the appropriate insert. The hip was reduced and taken through a range of motion. The hip was stable in all positions. The soft tissue tension and leg lengths were deemed to be appropriate. The hip was carefully dislocated. All trials were removed. Final implant chosen was an Accolade TMZF size 5.5 with a 132-degree neck angle. This was impacted into the femoral canal without difficulty. There was good stability of the stem with appropriate anteversion. A 28 +0 Biolox delta ceramic V40 femoral head was chosen with a 28/48/42E catholic MDM insert. The insert and head were prepared on the side table and impacted on to the femoral neck without difficulty. Lesser troch to center of the femoral head measured 55 mm. The hip was reduced and taken through range of motion. The hip was stable in all positions. The wound was copiously irrigated with sterile saline. Previously tagged capsule and tendons were reapproximated to the posterolateral femur. The lateral fascial layer was closed using interrupted #1 Vicryls. The rest of the incision was closed in a layered fashion using 0 and 2-0 Vicryls. Skin was closed using running 3-0 Monocryl and Dermabond. Sterile Adaptic, 4x4s, and paper tape were used to cover the incision. The patient's anesthesia was reversed without difficulty. He was taken to the PACU in stable condition. Intended weightbearing will be weightbearing as tolerated. Intended DVT prophylaxis will be Lovenox that will not start until 24 hours after the Urology procedure per Dr. Lovelace's request. [id number]/[facility] #: [id number] [facility]
--- NOTE | 2017-10-02 12:22 | PN ---
Progress Note - Progress Note Date of Service: 10/02/17 SOAP: Subjective: []Patient seen at bedside. He denies RLE pain or numbness. Denies CP or SOB. Denies dizziness or nausea. Objective: [] Vital Signs Temp 98.2 F 10/02/17 11:08 Pulse 94 10/02/17 11:08 Resp 18 10/02/17 13:07 BP 95/56 10/02/17 11:08 Pulse Ox 95 10/02/17 11:08 Intake & Output 10/01/17 10/02/17 10/02/17 18:59 06:59 18:59 Intake Total 335 972 5465 Output Total 25 450 100 Balance 915 200 983 Intake: IV Fluids 940 650 ABX - CEFAZOLIN 50 LR 600 NS (0.9%) 940 IVPB 1083 ABX - CEFAZOLIN 58 NS (0.9%) 1025 Oral 0 0 Output: Gracia 450 100 Residual 25 Gracia 22 Fr 25 Other: Estimated Void Medium # Bowel Movements 1 Estimated Stool Amount Medium # Voids 2 Laboratory Last Values WBC 13.3 10^3/ul (3.5-10.8) H 10/02/17 06:39 RBC 2.29 10^6/ul (4.0-5.4) L 10/02/17 06:39 Hgb 9.4 g/dl (14.0-18.0) L 10/02/17 06:39 Hct 28 % (42-52) L 10/02/17 06:39 MCV 121 fL (80-94) H 10/02/17 06:39 MCH 41 pg (27-31) H 10/02/17 06:39 MCHC 34 g/dl (31-36) 10/02/17 06:39 RDW 16 % (10.5-15) H 10/02/17 06:39 Plt Count 357 10^3/ul (150-450) 10/02/17 06:39 MPV 8.5 um3 (7.4-10.4) 10/02/17 06:39 Neut % (Auto) 76.3 % (38-83) 10/02/17 06:39 Lymph % (Auto) 6.5 % (25-47) L 10/02/17 06:39 [place] % (Auto) 16.5 % (0-7) H 10/02/17 06:39 Eos % (Auto) 0 % (0-6) 10/02/17 06:39 Baso % (Auto) 0.7 % (0-2) 10/02/17 06:39 Absolute Neuts (auto) 10.1 10^3/ul (1.5-7.7) H 10/02/17 06:39 Absolute Lymphs (auto) 0.9 10^3/ul (1.0-4.8) L 10/02/17 06:39 Absolute Monos (auto) 2.2 10^3/ul (0-0.8) H 10/02/17 06:39 Absolute Eos (auto) 0 10^3/ul (0-0.6) 10/02/17 06:39 Absolute Basos (auto) 0.1 10^3/ul (0-0.2) 10/02/17 06:39 Absolute Nucleated RBC 0 10^3/ul 10/02/17 06:39 Nucleated RBC % 0.1 10/02/17 06:39 Macrocytosis 2+ 09/30/17 13:23 INR (Anticoag Therapy) 0.93 (0.77-1.02) 09/30/17 16:00 APTT 39.4 seconds (26.0-36.3) H 09/30/17 16:00 Sodium 132 mmol/L (139-145) L 10/02/17 06:39 Potassium 4.4 mmol/L (3.5-5.0) 10/02/17 06:39 Chloride 105 mmol/L (101-111) 10/02/17 06:39 Carbon Dioxide 24 mmol/L (22-32) 10/02/17 06:39 Anion Gap 3 mmol/L (2-11) 10/02/17 06:39 BUN 17 mg/dL (6-24) 10/02/17 06:39 Creatinine 0.67 mg/dL (0.67-1.17) 10/02/17 06:39 Est GFR ( Amer) 157.8 (>60) 10/02/17 06:39 Est GFR (Non-Af Amer) 122.7 (>60) 10/02/17 06:39 BUN/Creatinine Ratio 25.4 (8-20) H 10/02/17 06:39 Glucose 89 mg/dL (70-100) 10/02/17 06:39 Lactic Acid 1.0 mmol/L (0.5-2.0) 09/30/17 13:23 Calcium 7.9 mg/dL (8.6-10.3) L 10/02/17 06:39 Magnesium 1.4 mg/dL (1.9-2.7) L 09/30/17 13:23 Iron 33 ug/dL (50-212) L 09/30/17 13:23 TIBC 199 mcg/dL (250-450) L 09/30/17 13:23 % Saturation 17 % (15-55) 09/30/17 13:23 Unsat Iron Binding 166 ug/dL 09/30/17 13:23 Transferrin 142 mg/dL (203-362) L 09/30/17 13:23 Ferritin 383.1 ng/mL (24-336) H 09/30/17 13:23 Total Bilirubin 0.50 mg/dL (0.2-1.0) 09/30/17 13:23 AST 19 U/L (13-39) 09/30/17 13:23 ALT 9 U/L (7-52) 09/30/17 13:23 Alkaline Phosphatase 105 U/L (34-104) H 09/30/17 13:23 C-Reactive Protein 2.99 mg/L (< 5.00) 09/30/17 13:23 Total Protein 6.5 g/dL (6.4-8.9) 09/30/17 13:23 Albumin 3.0 g/dL (3.2-5.2) L 09/30/17 13:23 Globulin 3.5 g/dL (2-4) 09/30/17 13:23 Albumin/Globulin Ratio 0.9 (1-3) L 09/30/17 13:23 Prealbumin 14 mg/dL (18-38) L 09/30/17 13:23 Vitamin B12 330 pg/mL (180-914) 09/30/17 13:23 Folate 4.24 ng/mL (>3.99) 09/30/17 13:23 TSH 0.83 mcIU/mL (0.34-5.60) 09/30/17 13:23 Free T4 1.09 ng/dL (0.61-1.12) 09/30/17 13:23 Free T3 3.40 pg/mL (2.5-3.9) 09/30/17 13:23 Total T3 0.63 ng/mL (0.87-1.78) L 09/30/17 13:23 General: Well appearing, NAD RLE: Dressing CDI without erythema surrounding. Thigh is soft. DF/PF intact. Sensation intact to light touch distally. DP2+. Capillary refill less than two seconds distally. Assessment: []POD 1 sp right total hip arthroplasty Plan: []PT/OT WBAT Lovenox x 30 days Gracia to remain in place x 1 week, fu Dr Lovelace outpatient in 1 week for cystoscopy
[2017-10-02] MEDS ORDERED: Nicotine Inhaler* 10 MG AMP INH PRN (14:58)
[2017-10-02] MEDS ORDERED: Mouth Piece, Nicotine* 1 EACH CARTRIDGE INH PRN (14:58)
[2017-10-02] MEDS ORDERED: Nicotine GUM* 2 MG PO PRN (14:58)
--- NOTE | 2017-10-02 15:00 | PN ---
Subjective Date of Service: 10/02/17 Interval History: Mr. Kwong reports doing well today. He notes that his hip pain is reasonably controlled. He denies chest pain, SOB, nausea, or abdominal pain. Objective Active Medications: Acetaminophen (Tylenol Tab*) 650 mg PO Q4H PRN Amlodipine Besylate (Norvasc Tab*) 5 mg PO DAILY PAM Docusate Sodium (Colace Cap*) 100 mg PO DAILY PRN Enoxaparin Sodium (Lovenox(*)) 30 mg SUBCUT DAILY@1800 PAM Folic Acid (Folvite Tab*) 1 mg PO DAILY PAM Cefazolin Sodium/Dextrose (Kefzol 1 Gm In Dextrose Duplex (*)) 1 gm in 50 mls @ 100 mls/hr IVPB Q8H PAM Sodium Chloride (Ns 0.9% 1000 Ml*) 1,000 mls @ 100 mls/hr IV PER RATE PAM Lorazepam (Ativan Tab(*)) 0 - 6 mg PO .PER [facility] PROTOCOL [facility] Morphine Sulfate (Morphine Vial*) 2 mg IV Q4H PRN Multivitamins/Minerals (Theragran/Minerals Tab*) 1 tab PO DAILY PAM Naloxone HCl (Narcan*) 0.08 mg IV Q2M PRN Oxycodone HCl (Roxycodone Tab*) 5 mg PO Q4H PRN Thiamine HCl (Vitamin B-1 Tab*) 100 mg PO DAILY [facility] Vital Signs: Temp Pulse Resp BP Pulse Ox 98.2 F 94 18 95/56 95 10/02/17 11:08 10/02/17 11:08 10/02/17 13:07 10/02/17 11:08 10/02/17 11:08 Oxygen Devices in Use Now: None Appearance: Male sitting up in chair in NAD Eyes: No Scleral Icterus Ears/Nose/Mouth/Throat: Mucous Membranes Moist Neck: Trachea Midline Respiratory: Symmetrical Chest Expansion and Respiratory Effort, Clear to Auscultation Cardiovascular: NL Sounds; No Murmurs; No JVD, No Edema Abdominal: NL Sounds; No Tenderness; No Distention Lymphatic: No Cervical Adenopathy Extremities: No Edema Skin: No Rash or Ulcers Neurological: Alert and Oriented x 3, NL Muscle Strength and Tone Nutrition: Taking PO's Result Diagrams: 10/02/17 06:39 10/02/17 06:39 Assess/Plan/Problems-Billing Assessment: Mr. Kwong is a 57 yo male with a PMH of hypertension who was admitted on with a right hip fracture. - Patient Problems (1) Closed right hip fracture Comment: - POD # 1. - Pain meds prn. - PT/OT. - Monitor H/H. (2) Hypertension Comment: - SBP 90s. - Hold amlodipine, started on admission. (3) Alcohol abuse Comment: - ? if patient abuses alcohol beyond what he stated on admission. - Has not scored for W[facility] protocol, continue folate and thiamine for now. (4) Anemia Comment: - Hgb 10.8 today, MCV 120. - Vitamin B12, folate levels normal. Iron low but % saturation normal, ferritin elevated but difficult to interpret in setting of recent fracture. Check stool occult blood. (5) Tobacco abuse Comment: - Nicotine replacement available prn. (6) DVT prophylaxis Comment: - Lovenox per ortho. (7) Full code status Comment: Status and Disposition: Inpatient. Anticipate may need rehab.
[2017-10-02 15:30] LABS: ABS Basophils 0.1 10^3/ul (0-0.2); ABS Eosinophils 0 10^3/ul (0-0.6); ABS Lymphocytes 0.5 10^3/ul (1.0-4.8); ABS Neutrophils 8.4 10^3/ul (1.5-7.7); ABS Nucleated RBC 0 10^3/ul; Eosinophil % 0.2 % (0-6); Hematocrit 28 % (42-52); Hemoglobin 9.3 g/dl (14.0-18.0); Lymphocyte % 4.4 % (25-47); Mean Corpuscular HGB Conc 34 g/dl (31-36); Mean Corpuscular Hemoglobin 41 pg (27-31); Mean Corpuscular Volume 121 fL (80-94); Mean Platelet Volume 8.5 um3 (7.4-10.4); Nucleated Red Blood Cells % 0; Platelet Count 324 10^3/ul (150-450); Red Blood Count 2.27 10^6/ul (4.0-5.4); Red Cell Distribution Width 16 % (10.5-15)
[2017-10-02] MEDS ORDERED: Enoxaparin(*) 30 MG/0.3 ML SYR SUBCUT SCH (18:00)
[2017-10-02] MEDS: Docusate CAP* 100 MG PO PRN (19:39)
[2017-10-03] MEDS: Acetaminophen TAB* 325 MG PO PRN ×2 (02:49→09:33)
[2017-10-03] MEDS: oxyCODONE TAB* 5 MG TAB PO PRN ×2 (02:50→09:34)
--- NOTE | 2017-10-03 08:47 | PN ---
Subjective Date of Service: 10/03/17 Interval History: Mr. Kwong denies complaint and is eager to move on to rehab. Objective Active Medications: Acetaminophen (Tylenol Tab*) 650 mg PO Q4H PRN Device (Nicotine Mouth Piece*) 1 each INH .USE WITH NICOTROL PRN Docusate Sodium (Colace Cap*) 100 mg PO DAILY PRN Enoxaparin Sodium (Lovenox(*)) 30 mg SUBCUT DAILY@1800 PAM Folic Acid (Folvite Tab*) 1 mg PO DAILY PAM Sodium Chloride (Ns 0.9% 1000 Ml*) 1,000 mls @ 100 mls/hr IV PER RATE PAM Lorazepam (Ativan Tab(*)) 0 - 6 mg PO .PER [facility] PROTOCOL PAM Morphine Sulfate (Morphine Vial*) 2 mg IV Q4H PRN Multivitamins/Minerals (Theragran/Minerals Tab*) 1 tab PO DAILY PAM Nicotine (Nicotine Inhaler*) 10 mg INH Q2H PRN Nicotine Polacrilex (Nicotine Gum*) 2 mg PO Q2H PRN Oxycodone HCl (Roxycodone Tab*) 5 mg PO Q4H PRN Thiamine HCl (Vitamin B-1 Tab*) 100 mg PO DAILY PAM Vital Signs: Temp Pulse Resp BP Pulse Ox 98.1 F 79 16 113/64 96 10/03/17 03:25 10/03/17 03:25 10/03/17 05:22 10/03/17 03:25 10/03/17 03:25 Oxygen Devices in Use Now: None Appearance: Male sitting up in chair in NAD Eyes: No Scleral Icterus Ears/Nose/Mouth/Throat: Mucous Membranes Moist Neck: Trachea Midline Respiratory: Symmetrical Chest Expansion and Respiratory Effort, Clear to Auscultation Cardiovascular: NL Sounds; No Murmurs; No JVD, No Edema Abdominal: NL Sounds; No Tenderness; No Distention Lymphatic: No Cervical Adenopathy Extremities: No Edema Skin: No Rash or Ulcers Neurological: Alert and Oriented x 3, NL Muscle Strength and Tone Nutrition: Taking PO's Result Diagrams: 10/02/17 15:17 10/02/17 06:39 Assess/Plan/Problems-Billing Assessment: Mr. Kwong is a 57 yo male with a PMH of hypertension who was admitted on with a right hip fracture. - Patient Problems (1) Closed right hip fracture Comment: - POD # 2. - Pain meds prn. - PT/OT. - Hgb 9.3. (2) Hypertension Comment: - SBP 90s. - Hold amlodipine, started on admission. (3) Alcohol abuse Comment: - ? if patient abuses alcohol beyond what he stated on admission. - Has not scored for [place] protocol, continue folate and thiamine for now. (4) Anemia Comment: - Hgb 10.8 today, MCV 120. - Vitamin B12, folate levels normal. Iron low but % saturation normal, ferritin elevated but difficult to interpret in setting of recent fracture. Check stool occult blood. - Will need close follow up. (5) Tobacco abuse Comment: - Nicotine replacement available prn. (6) DVT prophylaxis Comment: - Lovenox per ortho. (7) Full code status Comment: Status and Disposition: Inpatient. Discharge to [facility].
[2017-10-03 09:01] VITALS: BP 117/66
[2017-10-03] MEDS: Multivitamins/Minerals TAB PO SCH (09:34)
[2017-10-03] MEDS: Docusate CAP* 100 MG PO PRN (09:34)
[2017-10-03] MEDS: Thiamine TAB* 100 MG TAB PO SCH (09:34)
[2017-10-03] MEDS: Folic Acid TAB* 1 MG PO SCH (09:34)
--- NOTE | 2017-10-04 09:16 | DS ---
CC: [facility].* DISCHARGE SUMMARY: DATE OF ADMISSION: 09/30/17 DATE OF DISCHARGE: 10/03/17 PRIMARY CARE PROVIDER: At [facility]. ATTENDING PHYSICIAN: Aletha Yañez MD * (dictation provided by Chanell Wiggins NP ). PRIMARY DIAGNOSES: Right femoral neck fracture, status post right total hip arthroplasty. SECONDARY DIAGNOSES: 1. Hypertension. 2. Tobacco abuse. PAST SURGICAL HISTORY: Cataract surgery, appendectomy, shoulder repair. MEDICATIONS AT THE TIME OF DISCHARGE: 1. Tylenol p.r.n. 2. Colace p.r.n. 3. Lovenox 30 mg subcutaneously daily. 4. Folic acid 1 mg p.o. daily. 5. Nicotine gum and/or inhaler p.r.n. 6. Oxycodone 5 mg p.r.n. 7. Thiamine 100 mg p.o. daily. HOSPITAL COURSE: Mr. Kwong is a 57-year-old male with past medical history of hypertension, who presented to the hospital on 09/30/17 after a fall at home with concern for right hip pain. Please see the dictated H and P from Dora Cardoza NP for complete details. In brief, patient reported that he had fallen several days earlier, but out of concern for lack of insurance he delayed coming to the emergency room. When here, he was found to have a right femoral neck fracture, his labs were remarkable for an anemia with a hemoglobin of 11.8 with macrocytosis and an MCV of 121. The remainder of his labs were unremarkable. Mr. Kwong went on for surgery with Dr. Sonw on 10/01/17 during which time he had a right total hip arthroplasty. I refer you to that operative note for complete details, but he tolerated that procedure well. He did require cystoscopy with internal urethrotomy and placement of a [facility] tip Gracia catheter due to strictures and the recommendation from Dr. Lovelace was that the patient leave the Gracia catheter in for about a week and to have outpatient followup for repeat cystoscopy as an outpatient. Mr. Kwong is doing well. His hemoglobin today is 9.3. His vital signs are stable. He is mobilizing well with physical therapy, but has been deemed to need further rehabilitation before returning home and has been accepted to [facility]. Mr. Kwong is medically stable for discharge to home. I again note his anemia showing again on arrival his hemoglobin was 11.8 with a macrocytic picture. I did check iron studies, which showed iron 33, with percent iron saturation 17, ferritin was 383.1, which is difficult to interpret in the setting of a recent hip fracture. His folate was normal as was his B12, which was 330. He states he has never had a colonoscopy before. He denies dark or tarry stools. I do recommend that he needs close followup at the time of discharge with his primary care physician for continued workup of anemia. I also note that he was initially started on amlodipine here in the hospital for high blood pressure, but this was discontinued after his blood pressure was running systolically in the 90s. He will need to continue to follow up with this to see if he warrants treatment for hypertension once he is recovered from the hip fracture. Mr. Kwong is medically stable for discharge to [facility]. DISPOSITION: To [facility]. DIET: Regular. ACTIVITY: As tolerated. FOLLOWUP PLANS: Please follow up with the providers in [facility] regarding your anemia and hypertension. TIME SPENT: Approximately 60 minutes was spent on the discharge of this patient , more than half the time spent with the patient at the bedside reviewing the events leading up to and during this hospitalization, performing the physical examination, and reviewing the plan of care. CHANELL WIGGINS, NICOLE [id number]/[facility] #: [id number] LUIG[facility]
== END 2017-10-03 10:15 | DRG 470 ==
LOC: ED 11:43 → SSU 13:45
PROVIDERS: ADMIT Internal Medicine; ATTEND Internal Medicine
PROC: 0T9B80Z Drainage of Bladder with Drainage Device, Via Natural or Artificial Opening Endoscopic (ICD-10-PCS; 2017-10-01)
PROC: 0SR903A Replacement of Right Hip Joint with Ceramic Synthetic Substitute, Uncemented, Open Approach (ICD-10-PCS; principal; 2017-10-01 16:00)
PROC: 0T7D8ZZ Dilation of Urethra, Via Natural or Artificial Opening Endoscopic (ICD-10-PCS; 2017-10-01 16:00)
DX: S72.001A Fracture of unspecified part of neck of right femur, initial encounter for closed fracture (principal); I10 Essential (primary) hypertension; F17.210 Nicotine dependence, cigarettes, uncomplicated; D53.9 Nutritional anemia, unspecified; W10.9XXA Fall (on) (from) unspecified stairs and steps, initial encounter; E87.8 Other disorders of electrolyte and fluid balance, not elsewhere classified; F10.10 Alcohol abuse, uncomplicated; N35.9 Urethral stricture, unspecified; M25.751 Osteophyte, right hip; M85.88 Other specified disorders of bone density and structure, other site; R33.9 Retention of urine, unspecified; N32.3 Diverticulum of bladder; Z98.49 Cataract extraction status, unspecified eye; Z79.01 Long term (current) use of anticoagulants; Y92.009 Unspecified place in unspecified non-institutional (private) residence as the place of occurrence of the external cause; Z82.49 Family history of ischemic heart disease and other diseases of the circulatory system; Z80.0 Family history of malignant neoplasm of digestive organs; Z56.0 Unemployment, unspecified
CPT/HCPCS: 36415; 71046; 72192; 80048; 80053; 82607; 82728; 82746; 83540; 83550; 83605; 83735; 84134; 84439; 84443; 84479; 84481; 85025; 85610; 85730; 86140; 88305; 88311; 93005; 99284; 99406; A9270-GY; C1713; C1776; G8987-GO-CK; G8988-GO-CI; J0690; J1100; J1580; J1644; J1650; J2250; J2270; J2795; J3010; J3475; J3490

== ENCOUNTER 2017-10-03 08:46 | Inpatient (IN) | payer MEDICAID ==
[2017-10-03] MEDS ORDERED: Senna TAB PO PRN (12:38)
[2017-10-03] MEDS ORDERED: Magnesium Hydroxide LIQ* 30 ML UDC PO PRN (12:38)
[2017-10-03] MEDS: Acetaminophen TAB* 325 MG PO PRN (17:54)
[2017-10-03] MEDS ORDERED: Mouth Piece, Nicotine* 1 EACH CARTRIDGE INH PRN (17:55)
[2017-10-03] MEDS ORDERED: Nicotine Inhaler* 10 MG AMP INH PRN (17:55)
[2017-10-03] MEDS: Enoxaparin(*) 40 MG/0.4 ML SYR SUBCUT SCH (17:56)
[2017-10-03] MEDS ORDERED: Enoxaparin(*) 30 MG/0.3 ML SYR SUBCUT SCH (18:00)
[2017-10-03] MEDS: Docusate CAP* 100 MG PO SCH (20:27)
--- NOTE | 2017-10-04 03:39 | HP ---
ADMISSION HISTORY AND PHYSICAL: DATE OF ADMISSION: 10/03/17 REASON FOR ADMISSION: Right hip fracture. HISTORY OF ILLNESS: Gregg Kwong is a 57-year-old male with little in the way of past medical history. He does state that he has not been to the doctor in several years. The patient recently moved back to the [facility] and is currently living with his mother. Somewhere around 09/23/17, the patient was walking downstairs and he missed the step and he fell down the rest of the stairs and landed on his right hip. He had extreme pain in his right hip, but was able to get up and walk back into the house. He borrowed crutches from a friend. He hoped it would get better on its own. When it did not, he came to the emergency room. This was about a week after he originally fell. He had the x-rays taken in the emergency room that showed a nondisplaced right femoral neck fracture. He was seen in consultation by Dr. Charmaine Snow. Dr. Snow felt he had the option of either having an ORIF of his hip versus a total hip arthroplasty. He had a CAT scan of his pelvis done also, which had shown a displaced femoral neck fracture and excluded a fracture of the acetabulum. The patient was taken to the operating room on 10/01/17 and underwent a right total hip replacement. Surgery was complicated by difficulty placing the Gracia catheter. Dr. Lovelace from the urology department had to come in and do a cystoscopy to place the catheter. The catheter has to stay in place for a week. Postop, the patient's course was benign. He was started on Lovenox for DVT prophylaxis, which he will need to stay on for 30 days postop. He was felt to have physical therapy and occupational therapy needs. He is now being admitted for inpatient rehab so that he might return to independent living. PAST MEDICAL HISTORY: Largely benign. He may have had hypertension in the past , but was not taking anything prior to admission. CURRENT MEDICATIONS: Include: 1. Lovenox. 2. Oxycodone for pain control. 3. Nicotine inhaler. ALLERGIES: No known drug allergies. SOCIAL HISTORY: The patient was a pack a day smoker. He would have a couple of drinks on the weekends. He lived in a double wide with his mother and brother. There are 3 steps to enter. He was not working prior to his fracture. REVIEW OF SYSTEMS: The patient reports no current shortness of breath or chest pain. PHYSICAL EXAMINATION VITAL SIGNS: The patient's temperature is 98.4, blood pressure 106/61, pulse is 91, respirations 16. HEENT: His extraocular movements were intact. Tongue is midline. NECK: Supple with no lymphadenopathy. LUNGS: Sound clear to auscultation bilaterally. HEART: Sounds are regular. S1, S2 are audible. ABDOMEN: Soft and nontender. EXTREMITIES: His right hip has a wound, which is clean and dry. Peripheral pulses were intact. NEUROLOGIC: He is awake, alert, oriented. Muscle strength appears to be 5/5 except the right leg, which is 3/5 secondary to pain. FUNCTIONAL EXAM: The patient transfers with mini assist. ASSESSMENT: Right total hip replacement in a patent with a right hip fracture. PLAN: Our plan is to integrate him into a comprehensive and therapeutic rehab program with the following goals: 1. Physical Therapy will work with the patient, they are going to work on functional transfer training, ambulation training with a walker. 2. Occupational Therapy will see the patient, work on his activities of daily living including toileting and toilet transfers. 3. Lovenox for DVT prophylaxis. 4. Adequate analgesia. 5. His bowels will be regulated. 6. Portable Sawyer will be closely involved to make sure that any services and equipment the patient requires are in place prior to discharge. 7. For his nicotine addiction, we will continue to use nicotine supplementation. 8. Family training as appropriate. 9. Home with appropriate services. ESTIMATED LENGTH OF STAY: 5 to 7 days. [id number]/[facility] #: [id number] [facility]
[2017-10-04] MEDS: oxyCODONE TAB* 5 MG TAB PO PRN ×3 (03:41→17:50)
[2017-10-04 06:38] LABS: EGFR Non-African American 122.7 (>60)
[2017-10-04 07:00] LABS: Monocytes % 23 % (0-7)
[2017-10-04] MEDS: Docusate CAP* 100 MG PO SCH ×2 (07:12→20:23)
[2017-10-04 07:23] LABS: White Blood Count 10.5 10^3/ul (3.5-10.8)
[2017-10-04 07:24] LABS: Hematocrit 23 % (42-52); Mean Corpuscular HGB Conc 35 g/dl (31-36); Mean Corpuscular Hemoglobin 41 pg (27-31); Mean Corpuscular Volume 119 fL (80-94); Mean Platelet Volume 8.8 um3 (7.4-10.4); Platelet Count 277 10^3/ul (150-450); Red Blood Count 1.95 10^6/ul (4.0-5.4); Red Cell Distribution Width 16 % (10.5-15)
--- NOTE | 2017-10-04 12:54 | PMRUTEAM ---
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 SHEREEN Right Hip] Physical Therapy: Current Status Bed Mobility Assistance Independent Transfer Moblility Assistance Supervision Transfer/Bed Mobility Rolling Walker Recommended Devices Ambulation Assistance Contact Guard Assist Ambulation Assistive Devices Rolling Walker Number of Feet Patient 75, 2x40 Ambulated Stairs Assistance Contact Guard Assist,Min Assist Stairs Recommended Devices Two Rails Number of Stairs 6 Occupational Therapy: Current Status Upper Body Dressing Supervision Lower Body Dressing Min Assist Bathing Supervision Toileting Max Asst Toilet Transfer Contact Guard Assist Shower Transfer Contact Guard Assist Eating Independent Rec Therapy: Current Status Summary of Assessment and Pt. was open to conversation - engaged and Clinical Impression pleasant throughout. Pt. identified with interests and involvement in them prior to admission. Pt. has a tablet in his room for enjoyment. Treatment Goals Pt. will engage in leisure activities while on the unit. Treatment Plan Provide RT services and encourage involvement. Social Work: Current Status Discharge Plan return home with support from family and community services as needed Potential for Family Training TBD Anticipated Discharge Home Destination Anticipated Discharge Gregg has pending medicaid and has no PCP Destination Comment Discharge With support from family and community services as needed Goals: Physical Therapy: Initial Goals Bed Mobility Assistance Independent Transfer Mobility Assistance Independent Transfer/Bed Mobility None Recommended Devices Ambulation Independent Ambulation Recommended Devices Rolling Walker Ambulation Distance 250 Stairs Assistance Independent Stair Recommended Devices Two Rails Number of Stairs 12 Home Exercise Program Independent Assistance Physical Therapy: Updated Goals Transfer/Bed Mobility Rolling Walker,Railings Recommended Devices Occupational Therapy: Initial Goals Goals to be Completed in (Days 3-7 ) Upper Body Bathing Routine Independent Lower Body Bathing Routine Modified Independent with Upper Body Dressing Routine Independent Lower Body Dressing Routine Modified Independent with Toilet Hygeine and Clothing Modified Independent with Management Routine Toilet Transfer Routine Modified Independent with Tub Transfer Routine Modified Independent with Functional Transfers for ADL Modified Independent with Grooming Routine Independent Feeding Routine Independent Light Housekeeping Tasks Minimal Contact Assist Social Work: Goals Discharge Plan return home with support from family and community services as needed Potential for Family Training TBD Anticipated Discharge Home Destination Anticipated Discharge Gregg has pending medicaid and has no PCP Destination Comment Discharge With support from family and community services as needed Care Plan: Care Plan ADL's - Improve/Maintain Start: 10/03/17 15:07 Freq: DAILY Status: Active Target: Protocol: Activity Type Activity Date Activity User E-Sign Co-Sign Detail Recorded Client Recorded Date Recorded By Document 10/04/17 11:37 [id number] 10/04/17 11:37 [id number] 10/04/17 11:37 PMRU Outcome: ADL's/ADL Transfers Orders/Interventions Occupational Therapy Evaluation & Treatment Communication Tool in Patient Room Device Yes Address Deficits Secondary To: Right SAL Patient to receive OT 5x/wk for 60-120 Therex min/day Self Care Management Group Therapy UE/LE ADL's with Assist Yes: Marvin ADL Transfers with Assist Yes: Marvin Toileting: Transfers,Clothing Management Yes: Marvin ,Hygeine w/Assist Light Kitchen/Laundry w/Assist Yes: George Progression Toward Outcome/Goals Progressing Outcome/Goals Met Pt participated well in ADL treatment session, able to walk to/from shower room with closeS-CGA with FWW and gait belt to complete shower this date, doing well with AE training with good carryover from previous sessions. DVT Prophylaxis- Improve/Maintain Start: 10/03/17 14:37 Freq: DAILY Status: Active Target: Protocol: Activity Type Activity Date Activity User E-Sign Co-Sign Detail Recorded Client Recorded Date Recorded By Document 10/04/17 09:53 [id number] 10/04/17 09:54 [id number] 10/04/17 09:53 PMRU Outcome: DVT Prophylaxis Outcome/Goals Remains Free of DVT Complies with DVT Prophylaxis /Treatment Demonstrates Knowledge of DVT Prevention/ Treatment TEDS Stockings on Every AM, Off at HS Progression Toward Outcome/Goals Progressing Discharge Planning - Improve/Maintain Start: 10/03/17 14:37 Freq: DAILY Status: Active Target: Protocol: Activity Type Activity Date Activity User E-Sign Co-Sign Detail Recorded Client Recorded Date Recorded By Document 10/03/17 17:01 [id number] 10/03/17 17:10 [id number] 10/03/17 17:01 PMRU Outcome: Discharge Planning Outcome/Goals Demonstrates Understanding of Discharge Plan Progression Toward Outcome/Goals Progressing Education-Improve/Maintain Start: 10/03/17 14:37 Freq: DAILY Status: Active Target: Protocol: Activity Type Activity Date Activity User E-Sign Co-Sign Detail Recorded Client Recorded Date Recorded By Document 10/04/17 09:53 [id number] 10/04/17 09:54 [id number] 10/04/17 09:53 PMRU Outcome: Education Outcome/Goals Encourage Questions Progression Toward Outcome/Goals Progressing /GI-Improve/Maintain Start: 10/03/17 14:37 Freq: DAILY Status: Active Target: Protocol: Activity Type Activity Date Activity User E-Sign Co-Sign Detail Recorded Client Recorded Date Recorded By Document 10/04/17 09:53 [id number] 10/04/17 09:54 [id number] 10/04/17 09:53 PMRU Outcome: Genitourinary/ Gastrointestinal Genitourinary- Outcome/Goals Remain Free of Hospital- Acquired UTI Gastrointestinal-Outcome/Goals Prevent Constipation Laxatives as Ordered Other Outcome/Goals patient took colace this am. Progression Toward Outcome/Goals - Progressing Progression Toward Outcome/Goals - GI Progressing Medication Administration Start: 10/03/17 14:37 Freq: DAILY Status: Active Target: Protocol: Activity Type Activity Date Activity User E-Sign Co-Sign Detail Recorded Client Recorded Date Recorded By Document 10/04/17 09:53 [id number] 10/04/17 09:54 [id number] 10/04/17 09:53 PMRU Outcome: Medication Administration Assess Patient Knowledge/Teach Med Yes Education for all Meds Outcome/Goals Patient Independent with Medication Administration at Home Demonstrates Understanding Progression Towards Outcome/Goals Progressing Is Patient Going Home on Lovenox? No Mobility- Improve/Maintain Start: 10/03/17 10:57 Freq: DAILY Status: Active Target: Protocol: Activity Type Activity Date Activity User E-Sign Co-Sign Detail Recorded Client Recorded Date Recorded By Document 10/03/17 10:57 [id number] 10/03/17 10:59 [id number] 10/03/17 10:57 PMRU Outcome: Mobility Physical Therapy Evaluation and Yes Treatment Activity OOB with Assistance Yes WBAT Yes Device Yes Assistance Yes Patient to be seen 5x/wk for 60-120 min/ Therex day for: Mobility Training Gait Training Balance Outcome/Goals Maintain/ Achieve Baseline Mobility Status Improve Mobility Status Demonstrates Proper Use of Assistive Devices Bed Mobility Yes Transfers Yes Gait x ft Yes: 250 Up/Down Stairs Yes With HEP Yes Pain/Comfort- Improve/Maintain Start: 10/03/17 14:37 Freq: DAILY Status: Active Target: Protocol: Activity Type Activity Date Activity User E-Sign Co-Sign Detail Recorded Client Recorded Date Recorded By Document 10/04/17 09:53 [id number] 10/04/17 09:54 [id number] 10/04/17 09:53 PMRU Outcome: Pain/Comfort Outcome/Goals Demonstrates Knowledge and Use of Available Comfort Measures Achieves Acceptable Comfort/Pain Level as Determined by Patient/Condit Maintain Comfort Level Allowing Patient to Fully Participate in Rehab Progression Toward Outcome/Goals Progressing Skin- Improve/Maintain Start: 10/03/17 14:37 Freq: DAILY Status: Active Target: Protocol: Activity Type Activity Date Activity User E-Sign Co-Sign Detail Recorded Client Recorded Date Recorded By Document 10/04/17 09:53 [id number] [email or web address] 10/04/17 09:54 [id number] 10/04/17 09:53 PMRU Outcome: Skin Skin Risk Level Low Outcome/Goals Surgical Incisions Healing Outcome/Goals Comment incision SHEREEN Progression Toward Outcome/Goals Progressing Medicine Note: Length of Stay: 4 days Anticipated Discharge Destination: Home Tentative Discharge Date: 10/08/17 Discharged to: Home
--- NOTE | 2017-10-04 15:30 | PN ---
Progress Note Date of Service: 10/04/17 Note: CUONG CHAUHAN was visited. Therapy notes read and reviewed. He was discussed in interdisciplinary plan of care rounds. He has been mobilizing well. His catheter will stay in until Saturday. Current Medications: Active Medications Generic Name Dose Route Start Last Admin Trade Name Freq PRN Reason Stop Dose Admin Acetaminophen 650 mg 10/03/17 12:38 10/03/17 17:54 Tylenol Tab* PO 650 mg Q6H PRN Administration FEVER/PAIN Device 1 each 10/03/17 17:55 Nicotine Mouth Piece* INH .USE WITH NICOTROL PRN CRAVING Docusate Sodium 100 mg 10/03/17 21:00 10/04/17 07:12 Colace Cap* PO 100 mg BID PAM Administration Enoxaparin Sodium 40 mg 10/03/17 18:00 10/03/17 17:56 Lovenox(*) SUBCUT 40 mg Q24H PAM Administration Magnesium Hydroxide 30 ml 10/03/17 12:38 Milk Of Magnesia Liq* PO Q6H PRN CONSTIPATION Nicotine 10 mg 10/03/17 17:55 Nicotine Inhaler* INH Q2H PRN CRAVING Oxycodone HCl 5 mg 10/03/17 17:53 10/04/17 13:08 Roxycodone Tab* PO 5 mg Q4H PRN Administration PAIN - MODERATE TO SEVERE Senna 2 tab 10/03/17 12:38 Senokot Tab* PO BEDTIME PRN CONSTIPATION Vital Signs: Vital Signs Temp Pulse Resp BP Pulse Ox 98.7 F 75 16 122/64 96 10/04/17 05:07 10/04/17 05:07 10/04/17 13:08 10/04/17 05:07 10/04/17 05:07 Lab Results: Laboratory Results - last 24 hr 10/04/17 10/04/17 05:50 05:50 WBC 10.5 RBC 1.95 L Hgb 8.0 L Hct 23 L MCV 119 H MCH 41 H MCHC 35 RDW 16 H Plt Count 277 MPV 8.8 Neutrophils % 61 Lymphocytes % 13 L Monocytes % 23 H Eosinophils % 3 Basophils % 0 Abs Neuts (Manual) 6.4 Abs Lymphs (Manual) 1.4 Abs Monocytes (Manual) 2.4 H Absolute Eos (Manual) 0.3 Abs Basophils (Manual) 0 Normal RBC Morphology Normal Hem Pathologist Commnt Sodium 135 L Potassium 3.9 Chloride 107 Carbon Dioxide 26 Anion Gap 2 BUN 20 Creatinine 0.67 Est GFR ( Amer) 157.8 Est GFR (Non-Af Amer) 122.7 BUN/Creatinine Ratio 29.9 H Glucose 85 Calcium 7.7 L Total Bilirubin 0.30 AST 51 H ALT 22 Alkaline Phosphatase 82 Total Protein 4.5 L Albumin 2.0 L Globulin 2.5 Albumin/Globulin Ratio 0.8 L Exam: LUNGS: Clear HEART: reg rhythm ABDOMEN: Soft +BS EXTREMITIES: right hip wound clean NEUROLOGIC: Alert and oriented. Able to move all 4 extremities. Assessment/Plan: 1. Right hip fracture, S/P Right SAL: PT/OT. WBAT 2. Ureteral Stricture: Gracia until Saturday 3. Hypertension: BP benign. No meds 4. Nicotine Addiction: Nicotine Inhaler PRN 5. DVT Prophylaxis: Lovenox 6. Lack of health Insurance: follow-up 10/04/17 15:28
[2017-10-04] MEDS: Enoxaparin(*) 40 MG/0.4 ML SYR SUBCUT SCH (17:48)
[2017-10-05] MEDS: Acetaminophen TAB* 325 MG PO PRN ×2 (06:04→14:47)
[2017-10-05] MEDS: Docusate CAP* 100 MG PO SCH ×2 (08:09→20:13)
[2017-10-05] MEDS: Enoxaparin(*) 40 MG/0.4 ML SYR SUBCUT SCH (17:48)
--- NOTE | 2017-10-05 19:22 | PN ---
Progress Note Date of Service: 10/05/17 Note: CUONG CHAUHAN was visited. Therapy notes read and reviewed. he did a bit of walking but feels okay. His castellano will come out Saturday. Current Medications: Active Medications Generic Name Dose Route Start Last Admin Trade Name Freq PRN Reason Stop Dose Admin Acetaminophen 650 mg 10/03/17 12:38 10/05/17 14:47 Tylenol Tab* PO 650 mg Q6H PRN Administration FEVER/PAIN Device 1 each 10/03/17 17:55 Nicotine Mouth Piece* INH .USE WITH NICOTROL PRN CRAVING Docusate Sodium 100 mg 10/03/17 21:00 10/05/17 08:09 Colace Cap* PO 100 mg BID PAM Administration Enoxaparin Sodium 40 mg 10/03/17 18:00 10/05/17 17:48 Lovenox(*) SUBCUT 40 mg Q24H PAM Administration Magnesium Hydroxide 30 ml 10/03/17 12:38 Milk Of Magnesia Liq* PO Q6H PRN CONSTIPATION Nicotine 10 mg 10/03/17 17:55 Nicotine Inhaler* INH Q2H PRN CRAVING Oxycodone HCl 5 mg 10/03/17 17:53 10/04/17 17:50 Roxycodone Tab* PO 5 mg Q4H PRN Administration PAIN - MODERATE TO SEVERE Senna 2 tab 10/03/17 12:38 Senokot Tab* PO BEDTIME PRN CONSTIPATION Vital Signs: Vital Signs Temp Pulse Resp BP Pulse Ox 98.6 F 81 16 104/59 99 10/05/17 15:17 10/05/17 15:17 10/05/17 15:17 10/05/17 15:17 10/05/17 15:17 Exam: LUNGS: Clear HEART: reg rhythm ABDOMEN: Soft +BS GENITOURINARY: Castellano draining clear yellow urine EXTREMITIES: right hip wound clean NEUROLOGIC: Alert and oriented. Able to move all 4 extremities. Assessment/Plan: 1. Right hip fracture, S/P Right SAL: PT/OT. WBAT 2. Ureteral Stricture: Castellano until Saturday 3. Hypertension: BP benign. No meds 4. Nicotine Addiction: Nicotine Inhaler PRN 5. DVT Prophylaxis: Lovenox 6. Lack of health Insurance: SW believes his Medicaid went through 10/05/17 19:23
[2017-10-06] MEDS: Acetaminophen TAB* 325 MG PO PRN ×2 (08:02→14:51)
[2017-10-06] MEDS: Docusate CAP* 100 MG PO SCH ×2 (08:05→20:09)
--- NOTE | 2017-10-06 17:29 | PN ---
Progress Note Date of Service: 10/06/17 Note: CUONG CHAUHAN was visited. Nursing notes read and reviewed. He is doing well. Gracia in place. No complaints of pain Current Medications: Active Medications Generic Name Dose Route Start Last Admin Trade Name Freq PRN Reason Stop Dose Admin Acetaminophen 650 mg 10/03/17 12:38 10/06/17 14:51 Tylenol Tab* PO 650 mg Q6H PRN Administration FEVER/PAIN Device 1 each 10/03/17 17:55 Nicotine Mouth Piece* INH .USE WITH NICOTROL PRN CRAVING Docusate Sodium 100 mg 10/03/17 21:00 10/06/17 08:05 Colace Cap* PO Not Given BID PAM Enoxaparin Sodium 40 mg 10/03/17 18:00 10/05/17 17:48 Lovenox(*) SUBCUT 40 mg Q24H PAM Administration Magnesium Hydroxide 30 ml 10/03/17 12:38 Milk Of Magnesia Liq* PO Q6H PRN CONSTIPATION Nicotine 10 mg 10/03/17 17:55 Nicotine Inhaler* INH Q2H PRN CRAVING Oxycodone HCl 5 mg 10/03/17 17:53 10/04/17 17:50 Roxycodone Tab* PO 5 mg Q4H PRN Administration PAIN - MODERATE TO SEVERE Senna 2 tab 10/03/17 12:38 Senokot Tab* PO BEDTIME PRN CONSTIPATION Vital Signs: Vital Signs Temp Pulse Resp BP Pulse Ox 98.4 F 74 16 106/60 99 10/06/17 15:29 10/06/17 15:29 10/06/17 15:29 10/06/17 15:29 10/06/17 15:29 Exam: LUNGS: Clear HEART: reg rhythm ABDOMEN: Soft +BS GENITOURINARY: Gracia draining clear yellow urine EXTREMITIES: right hip wound clean NEUROLOGIC: Alert and oriented. Able to move all 4 extremities. Assessment/Plan: 1. Right hip fracture, S/P Right SAL: PT/OT. WBAT 2. Ureteral Stricture: Gracia until Saturday 3. Hypertension: BP benign. No meds 4. Nicotine Addiction: Nicotine Inhaler PRN 5. DVT Prophylaxis: Lovenox 6. Lack of health Insurance: SW believes his Medicaid went through 10/06/17 17:30
[2017-10-06] MEDS: Enoxaparin(*) 40 MG/0.4 ML SYR SUBCUT SCH (18:24)
[2017-10-07] MEDS: Acetaminophen TAB* 325 MG PO PRN ×2 (09:38→21:25)
[2017-10-07] MEDS: Docusate CAP* 100 MG PO SCH ×2 (09:39→20:14)
--- NOTE | 2017-10-07 15:39 | PN ---
Progress Note Date of Service: 10/07/17 Note: CUONG CHAUHAN was visited. Nursing notes read and reviewed. He has no complaints today. Current Medications: Active Medications Generic Name Dose Route Start Last Admin Trade Name Freq PRN Reason Stop Dose Admin Acetaminophen 650 mg 10/03/17 12:38 10/07/17 09:38 Tylenol Tab* PO 650 mg Q6H PRN Administration FEVER/PAIN Device 1 each 10/03/17 17:55 Nicotine Mouth Piece* INH .USE WITH NICOTROL PRN CRAVING Docusate Sodium 100 mg 10/03/17 21:00 10/07/17 09:39 Colace Cap* PO Not Given BID PAM Enoxaparin Sodium 40 mg 10/03/17 18:00 10/06/17 18:24 Lovenox(*) SUBCUT 40 mg Q24H PAM Administration Magnesium Hydroxide 30 ml 10/03/17 12:38 Milk Of Magnrobert Liq* PO Q6H PRN CONSTIPATION Nicotine 10 mg 10/03/17 17:55 Nicotine Inhaler* INH Q2H PRN CRAVING Oxycodone HCl 5 mg 10/03/17 17:53 10/04/17 17:50 Roxycodone Tab* PO 5 mg Q4H PRN Administration PAIN - MODERATE TO SEVERE Senna 2 tab 10/03/17 12:38 Senokot Tab* PO BEDTIME PRN CONSTIPATION Vital Signs: Vital Signs Temp Pulse Resp BP Pulse Ox 98.7 F 70 18 116/71 96 10/07/17 06:41 10/07/17 06:41 10/07/17 06:41 10/07/17 06:41 10/07/17 06:41 Exam: LUNGS: Clear HEART: reg rhythm ABDOMEN: Soft +BS GENITOURINARY: Gracia draining clear yellow urine EXTREMITIES: right hip wound clean NEUROLOGIC: Alert and oriented. Able to move all 4 extremities. Assessment/Plan: 1. Right hip fracture, S/P Right SAL: PT/OT. WBAT 2. Ureteral Stricture: Gracia until Saturday 3. Hypertension: BP benign. No meds 4. Nicotine Addiction: Nicotine Inhaler PRN 5. DVT Prophylaxis: Lovenox 6. Lack of health Insurance: YOHANNES believes his Medicaid went through 10/07/17 15:39
[2017-10-07] MEDS: Enoxaparin(*) 40 MG/0.4 ML SYR SUBCUT SCH (18:11)
[2017-10-08] MEDS: Docusate CAP* 100 MG PO SCH ×2 (10:01→20:04)
--- NOTE | 2017-10-08 11:18 | PN ---
Progress Note Date of Service: 10/08/17 Note: CUONG CHAUHAN was visited. Therapy notes read and reviewed. He is set for discharge tomorrow. Gracia will be d/c'd early, home after void. Hip wound healing well. Current Medications: Active Medications Generic Name Dose Route Start Last Admin Trade Name Freq PRN Reason Stop Dose Admin Acetaminophen 650 mg 10/03/17 12:38 10/07/17 21:25 Tylenol Tab* PO 650 mg Q6H PRN Administration FEVER/PAIN Device 1 each 10/03/17 17:55 Nicotine Mouth Piece* INH .USE WITH NICOTROL PRN CRAVING Docusate Sodium 100 mg 10/03/17 21:00 10/08/17 10:01 Colace Cap* PO Not Given BID PAM Enoxaparin Sodium 40 mg 10/03/17 18:00 10/07/17 18:11 Lovenox(*) SUBCUT 40 mg Q24H PAM Administration Magnesium Hydroxide 30 ml 10/03/17 12:38 Milk Of Magnesia Liq* PO Q6H PRN CONSTIPATION Nicotine 10 mg 10/03/17 17:55 Nicotine Inhaler* INH Q2H PRN CRAVING Oxycodone HCl 5 mg 10/03/17 17:53 10/04/17 17:50 Roxycodone Tab* PO 5 mg Q4H PRN Administration PAIN - MODERATE TO SEVERE Senna 2 tab 10/03/17 12:38 Senokot Tab* PO BEDTIME PRN CONSTIPATION Vital Signs: Vital Signs Temp Pulse Resp BP Pulse Ox 98.2 F 78 20 110/72 96 10/07/17 15:17 10/07/17 15:17 10/07/17 18:55 10/07/17 16:32 10/07/17 18:55 Exam: LUNGS: Clear HEART: reg rhythm ABDOMEN: Soft +BS GENITOURINARY: Gracia draining clear yellow urine EXTREMITIES: right hip wound clean NEUROLOGIC: Alert and oriented. Able to move all 4 extremities. Assessment/Plan: 1. Right hip fracture, S/P Right SAL: PT/OT. WBAT 2. Ureteral Stricture: Gracia until tomorrow 3. Hypertension: BP benign. No meds 4. Nicotine Addiction: Nicotine Inhaler PRN 5. DVT Prophylaxis: Lovenox 6. Lack of health Insurance: SW believes his Medicaid went through 10/08/17 11:18
[2017-10-08] MEDS: Acetaminophen TAB* 325 MG PO PRN ×2 (12:00→20:03)
--- NOTE | 2017-10-08 12:19 | PMRUTEAM ---
PMRU: Team Meeting Current Status: Nursing: Current Status Skin Deviations [Bilateral Bruise forearms] Skin Deviations [Right Knee] Abrasion Skin Deviations [Right Hip] Incision Skin Deviation Description [ scattered Bilateral forearms] Skin Deviation Description [ healing Right Knee] Skin Deviation Description [ s/p THR Right Hip] Bladder Current Status Castellano in place, draining clear, yellow urine. Bowel Current Status Continent of bowel, refusing bowel medication Nutrition Current Status Adequete, 100% of most meals, ensure provided with meals. Medication Current Status Aware of medication regimen Physical Therapy: Current Status Bed Mobility Assistance Not Tested Transfer Moblility Assistance Independent Transfer/Bed Mobility Rolling Walker Recommended Devices Ambulation Assistance Supervision Ambulation Assistive Devices Rolling Walker Number of Feet Patient 150 Ambulated Stairs Assistance Supervision Stairs Recommended Devices Two Rails Number of Stairs 6 Occupational Therapy: Current Status Upper Body Dressing Supervision Lower Body Dressing Supervision,Min Assist Bathing Supervision Toileting Supervision Toilet Transfer Supervision Shower Transfer Contact Guard Assist Eating Independent Rec Therapy: Current Status Summary of Assessment and Pt. was open to conversation - engaged and Clinical Impression pleasant throughout. Pt. identified with interests and involvement in them prior to admission. Pt. has a tablet in his room for enjoyment. Treatment Goals Pt. will engage in leisure activities while on the unit. Treatment Plan Provide RT services and encourage involvement. Social Work: Current Status Discharge Plan return home with support from family and community services as needed Potential for Family Training TBD Anticipated Discharge Home Destination Anticipated Discharge Gre[place] has pending medicaid and has no PCP Destination Comment Discharge With support from family and community services as needed Nutrition: Current Status Monitoring pt appears to be eating well w/regular diet; Ensure Enlive supplementation as desired to promote wt stability (BMI 20). Last BM 10/07. Planned d/c 10/10, but if d/c delayed, pt will receive a full nutrition assessment per NDS protocol. Initial/tentative goals as outlined below. Goals: Physical Therapy: Initial Goals Bed Mobility Assistance Independent Transfer Mobility Assistance Independent Transfer/Bed Mobility None Recommended Devices Ambulation Independent Ambulation Recommended Devices Rolling Walker Ambulation Distance 250 Stairs Assistance Independent Stair Recommended Devices Two Rails Number of Stairs 12 Home Exercise Program Independent Assistance Physical Therapy: Updated Goals Transfer/Bed Mobility Rolling Walker,Railings Recommended Devices Occupational Therapy: Initial Goals Goals to be Completed in (Days 3-7 ) Upper Body Bathing Routine Independent Lower Body Bathing Routine Modified Independent with Upper Body Dressing Routine Independent Lower Body Dressing Routine Modified Independent with Toilet Hygeine and Clothing Modified Independent with Management Routine Toilet Transfer Routine Modified Independent with Tub Transfer Routine Modified Independent with Functional Transfers for ADL Modified Independent with Grooming Routine Independent Feeding Routine Independent Light Housekeeping Tasks Minimal Contact Assist Nursing: Goals Bladder Goal Independent with voiding Bowel Goal Independent with toileting Nutrition Goal 100% of all meals and adequate fluid intake Medication Goal Independent with medications Nutrition: Goals Intervention Goals 1. adequate po intake to support stable wt without unintended wt loss 2. maintain serum electrolytes within normal ranges 3. maintain regular bowel pattern without c/o constipation (or diarrhea) Social Work: Goals Discharge Plan return home with support from family and community services as needed Potential for Family Training TBD Anticipated Discharge Home Destination Anticipated Discharge [place] has pending medicaid and has no PCP Destination Comment Discharge With support from family and community services as needed Care Plan: Care Plan ADL's - Improve/Maintain Start: 10/03/17 15:07 Freq: DAILY Status: Active Target: Protocol: Activity Type Activity Date Activity User E-Sign Co-Sign Detail Recorded Client Recorded Date Recorded By Document 10/04/17 11:37 [id number] [id number] 10/04/17 11:37 [id number] 10/04/17 11:37 PMRU Outcome: ADL's/ADL Transfers Orders/Interventions Occupational Therapy Evaluation & Treatment Communication Tool in Patient Room Device Yes Address Deficits Secondary To: Right SAL Patient to receive OT 5x/wk for 60-120 Therex min/day Self Care Management Group Therapy UE/LE ADL's with Assist Yes: Marvin ADL Transfers with Assist Yes: Marvin Toileting: Transfers,Clothing Management Yes: Marvin ,Hygeine w/Assist Light Kitchen/Laundry w/Assist Yes: George Progression Toward Outcome/Goals Progressing Outcome/Goals Met Pt participated well in ADL treatment session, able to walk to/from shower room with closeS-CGA with FWW and gait belt to complete shower this date, doing well with AE training with good carryover from previous sessions. DVT Prophylaxis- Improve/Maintain Start: 10/03/17 14:37 Freq: DAILY Status: Active Target: Protocol: Activity Type Activity Date Activity User E-Sign Co-Sign Detail Recorded Client Recorded Date Recorded By Document 10/07/17 20:00 [id number] [id number] 10/07/17 21:38 [id number] 10/07/17 20:00 PMRU Outcome: DVT Prophylaxis Outcome/Goals Remains Free of DVT Complies with DVT Prophylaxis /Treatment Demonstrates Knowledge of DVT Prevention/ Treatment Progression Toward Outcome/Goals Progressing Outcome/Goals Met Remains Free of DVT Discharge Planning - Improve/Maintain Start: 10/03/17 14:37 Freq: DAILY Status: Active Target: Protocol: Activity Type Activity Date Activity User E-Sign Co-Sign Detail Recorded Client Recorded Date Recorded By Document 10/08/17 06:02 [id number] [id number] 10/08/17 06:02 [id number] 10/08/17 06:02 PMRU Outcome: Discharge Planning Update Patient Family No Outcome/Goals Demonstrates Understanding of Discharge Plan Progression Toward Outcome/Goals Progressing Education-Improve/Maintain Start: 10/03/17 14:37 Freq: DAILY Status: Active Target: Protocol: Activity Type Activity Date Activity User E-Sign Co-Sign Detail Recorded Client Recorded Date Recorded By Document 10/07/17 20:00 [id number] [email or web address] 10/07/17 21:38 [id number] 10/07/17 20:00 PMRU Outcome: Education Outcome/Goals Demonstrates Skills Encourage Questions Progression Toward Outcome/Goals Progressing /GI-Improve/Maintain Start: 10/03/17 14:37 Freq: DAILY Status: Active Target: Protocol: Activity Type Activity Date Activity User E-Sign Co-Sign Detail Recorded Client Recorded Date Recorded By Document 10/07/17 01:54 [id number] 10/07/17 01:55 [id number] 10/07/17 01:54 PMRU Outcome: Genitourinary/ Gastrointestinal Genitourinary- Outcome/Goals Maintain/ Achieve Adequate Urinary Output Remain Free of Hospital- Acquired UTI Gastrointestinal-Outcome/Goals Prevent Constipation Laxatives as Ordered Progression Toward Outcome/Goals - Progressing Progression Toward Outcome/Goals - GI Progressing Outcome/Goals Met Comment castellano in place Medication Administration Start: 10/03/17 14:37 Freq: DAILY Status: Active Target: Protocol: Activity Type Activity Date Activity User E-Sign Co-Sign Detail Recorded Client Recorded Date Recorded By Document 10/07/17 01:54 [id number] [email or web address] 10/07/17 01:55 [id number] 10/07/17 01:54 PMRU Outcome: Medication Administration Assess Patient Knowledge/Teach Med Yes Education for all Meds Outcome/Goals Patient Independent with Medication Administration at Home Demonstrates Understanding Progression Towards Outcome/Goals Progressing Is Patient Going Home on Lovenox? No Mobility- Improve/Maintain Start: 10/03/17 10:57 Freq: DAILY Status: Active Target: Protocol: Activity Type Activity Date Activity User E-Sign Co-Sign Detail Recorded Client Recorded Date Recorded By Document 10/03/17 10:57 [id number] [email or web address] 10/03/17 10:59 [id number] 10/03/17 10:57 PMRU Outcome: Mobility Physical Therapy Evaluation and Yes Treatment Activity OOB with Assistance Yes WBAT Yes Device Yes Assistance Yes Patient to be seen 5x/wk for 60-120 min/ Therex day for: Mobility Training Gait Training Balance Outcome/Goals Maintain/ Achieve Baseline Mobility Status Improve Mobility Status Demonstrates Proper Use of Assistive Devices Bed Mobility Yes Transfers Yes Gait x ft Yes: 250 Up/Down Stairs Yes With HEP Yes Pain/Comfort- Improve/Maintain Start: 10/03/17 14:37 Freq: DAILY Status: Active Target: Protocol: Activity Type Activity Date Activity User E-Sign Co-Sign Detail Recorded Client Recorded Date Recorded By Document 10/07/17 20:00 [id number] 10/07/17 21:38 [id number] 10/07/17 20:00 PMRU Outcome: Pain/Comfort Outcome/Goals Demonstrates Knowledge and Use of Available Comfort Measures Achieves Acceptable Comfort/Pain Level as Determined by Patient/Condit Maintain Comfort Level Allowing Patient to Fully Participate in Rehab Progression Toward Outcome/Goals Progressing Outcome/Goals Met Demonstrates Knowledge and Use of Available Comfort Measures Skin- Improve/Maintain Start: 10/03/17 14:37 Freq: DAILY Status: Active Target: Protocol: Activity Type Activity Date Activity User E-Sign Co-Sign Detail Recorded Client Recorded Date Recorded By Document 10/07/17 20:00 [id number] 10/07/17 21:39 [id number] 10/07/17 20:00 PMRU Outcome: Skin Skin Risk Level Low Dressing Change Comments incision open to air Outcome/Goals Surgical Incisions Healing Progression Toward Outcome/Goals Progressing Medicine Note: Length of Stay: 1 day Anticipated Discharge Destination: Home Tentative Discharge Date: 10/08/17 Discharged to: home
[2017-10-08] MEDS: Enoxaparin(*) 40 MG/0.4 ML SYR SUBCUT SCH (18:31)
[2017-10-09 05:01] VITALS: BP 118/66
[2017-10-09] MEDS: Docusate CAP* 100 MG PO SCH (09:49)
--- NOTE | 2017-10-10 21:28 | DS ---
CC: Dr. Markie Lovelace* DISCHARGE SUMMARY: DATE OF ADMISSION: 10/03/17 DATE OF DISCHARGE: 10/09/17 DISCHARGE DIAGNOSES: 1. Right hip fracture. 2. Status post total hip replacement, right side. 3. Ureteral strictures. 4. Tobacco use disorder. HISTORY OF PRESENT ILLNESS AND HOSPITAL COURSE: For complete history of events leading up to his rehab stay, please see the history and physical dictated by me on 10/03/17. While on the rehab unit, he had a Gracia catheter for the time on the rehab unit. He was maintained on Lovenox for DVT prophylaxis. He received adequate analgesia with oxycodone at first, but shortly after admission switched to Tylenol and this was enough to control his pain. The patient was seen by Physical Therapy and Occupational Therapy while on the rehab unit and made good gains with both disciplines. With physical therapy at the time of admission, the patient required min assist to transfer, he was able to ambulate 50 feet with minimal amount of assistance. With occupational therapy, he was min assist for toileting and toilet transfers. By the time of discharge, he was independent in all activities. The patient was discharged home on 10/09/17. Prior to discharge, his Gracia catheter was removed and he was able to void. DISCHARGE DIET: Regular. DISCHARGE MEDICATIONS: 1. Lovenox 40 mg subcutaneously once a day for 20 days. 2. Tylenol 650 mg every 6 hours as needed. SERVICES AFTER DISCHARGE: The patient will do outpatient physical therapy at [facility]. FOLLOWUP INSTRUCTIONS: Follow up with Dr. Charmaine Snow in 1 to 2 weeks. He will also follow up with Dr. Markie Lovelace in a month. [id number]/[facility] #: [id number] [facility]ITALLatisha
== END 2017-10-09 14:20 | disposition home or self-care (01) | DRG 860 ==
LOC: PMRU 10:22
PROVIDERS: ADMIT Physical Medicine & Rehabilitation; ATTEND Physical Medicine & Rehabilitation
PROC: F07Z5ZZ Bed Mobility Treatment (ICD-10-PCS; principal; 2017-10-03)
PROC: F07Z9ZZ Gait Training/Functional Ambulation Treatment (ICD-10-PCS; 2017-10-03)
PROC: F07Z8ZZ Transfer Training Treatment (ICD-10-PCS; 2017-10-03)
PROC: F08Z0ZZ Bathing/Showering Techniques Treatment (ICD-10-PCS; 2017-10-03)
PROC: F08Z1ZZ Dressing Techniques Treatment (ICD-10-PCS; 2017-10-03)
PROC: F08Z3ZZ Feeding/Eating Treatment (ICD-10-PCS; 2017-10-03)
DX: S72.001D Fracture of unspecified part of neck of right femur, subsequent encounter for closed fracture with routine healing (principal); Z47.1 Aftercare following joint replacement surgery; W10.9XXD Fall (on) (from) unspecified stairs and steps, subsequent encounter; Z96.641 Presence of right artificial hip joint; N35.9 Urethral stricture, unspecified; I10 Essential (primary) hypertension; F17.200 Nicotine dependence, unspecified, uncomplicated
CPT/HCPCS: 36415; 80053; 85025; 85060; A9270-GY; J1650

== ENCOUNTER 2022-06-16 14:23 | Inpatient (IN) ==
[2022-06-16 15:13] LABS: Hematocrit 49 % (42-52); Hemoglobin 15.6 g/dL (14.0-18.0); Mean Corpuscular HGB Conc 32 g/dL (31-36); Mean Corpuscular Hemoglobin 30 pg (27-31); Mean Corpuscular Volume 95 fL (80-94); Mean Platelet Volume 9.5 fL (7.4-10.4); Platelet Count 295 10^3/uL (150-450); Red Blood Count 5.12 10^6 /uL (4.18-5.48); Red Cell Distribution Width 14 % (10-15); White Blood Count 30.4 10^3/uL (3.5-10.8)
[2022-06-16 15:48] LABS: ALT 18 U/L (7-52); Albumin 3.9 g/dL (3.2-5.2); Albumin/Globulin Ratio 1.1 (1-3); Alkaline Phosphatase 75 U/L (35-149); Blood Urea Nitrogen 26 mg/dL (6-24); C Reactive Protein 14.34 mg/L (<8.01); CO2 Carbon Dioxide 37 mmol/L (22-32); Calcium 9.3 mg/dL (8.6-10.3); Chloride 100 mmol/L (101-111); Creatinine, Serum 0.88 mg/dL (0.67-1.17); Globulin 3.6 g/dL (2-4); Glucose 118 mg/dL (70-100); Sodium 139 mmol/L (135-145); Total Protein 7.5 g/dL (6.4-8.9); eGFR CKD-EPI 98.4 (>60)
[2022-06-16 15:56] LABS: Anion Gap 2 mmol/L (2-11)
[2022-06-16] MEDS ORDERED: cefTRIAXone 1 gm/50 mL D5W 1 GM/50 ML BAG IV ONE (16:55)
[2022-06-16] MEDS ORDERED: Azithromycin 500 mg/250 ml NS 500 MG/250 ML BAG IVPB ONE (16:56)
[2022-06-16 17:15] LABS: Potassium Redraw 4.4 mmol/L (3.5-5.0)
[2022-06-16] MEDS ORDERED: Senna TAB 8.6 mg TAB PO PRN (17:20)
[2022-06-16] MEDS ORDERED: Magnesium Hydroxide LIQ 30 ML UDC PO PRN (17:20)
[2022-06-16] MEDS ORDERED: Acetaminophen IV 1 GM/100ML 1,000 MG/100 ML BAG IV PRN (17:24)
[2022-06-16] MEDS ORDERED: Morphine 2 MG/ML SYRINGE IV PRN (17:24)
[2022-06-16 17:31] LABS: ABS Basophils 0.1 10^3/ul (0-0.2); ABS Lymphocytes 0.7 10^3/ul (1.0-4.8); ABS Monocytes 2.3 10^3/ul (0-0.8); ABS Neutrophils 27.2 10^3/ul (1.5-7.7); Eosinophil % 0.2 %; Lymphocyte % 2.5 %
[2022-06-16] MEDS ORDERED: Albuterol HFA INHALER 8 gm MDI INH PRN (17:32)
[2022-06-16] MEDS ORDERED: Heparin 5000 UNITS/ML 1 mL VIAL SUBCUT SCH ×2 (18:00→22:00)
[2022-06-16] MEDS: Lactated Ringers 1000 ml BAG 1,000 ML IV SCH ×2 (18:06→20:37)
[2022-06-17 06:27] LABS: Hematocrit 35 % (42-52); Hemoglobin 10.8 g/dL (14.0-18.0); Mean Corpuscular HGB Conc 31 g/dL (31-36); Mean Corpuscular Hemoglobin 30 pg (27-31); Mean Corpuscular Volume 96 fL (80-94); Mean Platelet Volume 10.1 fL (7.4-10.4); Platelet Count 209 10^3/uL (150-450); Red Blood Count 3.61 10^6 /uL (4.18-5.48); Red Cell Distribution Width 15 % (10-15); White Blood Count 20.4 10^3/uL (3.5-10.8)
[2022-06-17 06:30] LABS: ABS Basophils 0.1 10^3/ul (0-0.2); ABS Eosinophils 0.1 10^3/ul (0-0.6); ABS Lymphocytes 1.4 10^3/ul (1.0-4.8); ABS Monocytes 2.4 10^3/ul (0-0.8); ABS Neutrophils 16.4 10^3/ul (1.5-7.7); Eosinophil % 0.3 %
[2022-06-17 06:36] LABS: Calcium 8.6 mg/dL (8.6-10.3); Magnesium 1.9 mg/dL (1.9-2.7); Potassium 4.8 mmol/L (3.5-5.0)
[2022-06-17 06:41] LABS: Creatinine, Serum 0.79 mg/dL (0.67-1.17); eGFR CKD-EPI 101.7 (>60)
[2022-06-17] MEDS: Tiotropium Brom/Olodaterol MDI INH SCH (07:00)
[2022-06-17] MEDS ORDERED: Pneumococcal Vac 23-Polyvalent IM ONE (09:00)
[2022-06-17] MEDS ORDERED: Nicotine Lozenge mini 2 MG LOZNG.MINI MT PRN (09:59)
[2022-06-17] MEDS ORDERED: Lactated Ringers 1000 ml BAG 1,000 ML IV ONE (12:22)
[2022-06-17] MEDS: Heparin 5000 UNITS/ML 1 mL VIAL SUBCUT SCH ×2 (13:17→21:22)
[2022-06-17] MEDS ORDERED: PEG 3000 GI LAVAGE 1 GALLON PO ONE (15:47)
[2022-06-17 16:45] LABS: Vitamin D Total 25(OH) 7.5 ng/mL (20-50)
[2022-06-17] MEDS: cefTRIAXone 1 gm/50 mL D5W 1 GM/50 ML BAG IV SCH (16:51)
[2022-06-17] MEDS ORDERED: Azithromycin 500 mg/250 ml NS 500 MG/250 ML BAG IVPB SCH (18:00)
[2022-06-18 07:03] LABS: Hematocrit 31 % (42-52); Hemoglobin 10.1 g/dL (14.0-18.0); Mean Corpuscular HGB Conc 33 g/dL (31-36); Mean Corpuscular Hemoglobin 31 pg (27-31); Mean Corpuscular Volume 95 fL (80-94); Mean Platelet Volume 10.3 fL (7.4-10.4); Platelet Count 201 10^3/uL (150-450); Red Blood Count 3.25 10^6 /uL (4.18-5.48); Red Cell Distribution Width 14 % (10-15); White Blood Count 16.4 10^3/uL (3.5-10.8)
[2022-06-18 07:08] LABS: ABS Basophils 0.1 10^3/ul (0-0.2); ABS Eosinophils 0.1 10^3/ul (0-0.6); ABS Lymphocytes 1.6 10^3/ul (1.0-4.8); ABS Monocytes 2.2 10^3/ul (0-0.8); ABS Neutrophils 12.4 10^3/ul (1.5-7.7); Eosinophil % 0.6 %; Lymphocyte % 9.8 %
[2022-06-18 07:19] LABS: Blood Urea Nitrogen 35 mg/dL (6-24); CO2 Carbon Dioxide 36 mmol/L (22-32); Calcium 8.5 mg/dL (8.6-10.3); Chloride 101 mmol/L (101-111); Creatinine, Serum 0.82 mg/dL (0.67-1.17); Glucose 75 mg/dL (70-100); Magnesium 1.8 mg/dL (1.9-2.7); Potassium 4.6 mmol/L (3.5-5.0); Sodium 137 mmol/L (135-145); eGFR CKD-EPI 100.6 (>60)
[2022-06-18] MEDS: Tiotropium Brom/Olodaterol MDI INH SCH (07:19)
[2022-06-18] MEDS ORDERED: Magnesium Sulfate 2 gm BAG 2 GM/50 ML BAG IVPB ONE (07:35)
[2022-06-18] MEDS: Polyethylene Glycol 3350 17 GM PACKET PO SCH (08:58)
[2022-06-18] MEDS: Enoxaparin 40 MG/0.4 ML SYR SUBCUT SCH (15:22)
[2022-06-18] MEDS: cefTRIAXone 1 gm/50 mL D5W 1 GM/50 ML BAG IV SCH (17:16)
[2022-06-18] MEDS: Senna TAB 8.6 mg TAB PO SCH (20:00)
[2022-06-19] MEDS: Tiotropium Brom/Olodaterol MDI INH SCH (07:40)
[2022-06-19] MEDS: Polyethylene Glycol 3350 17 GM PACKET PO SCH ×2 (10:12→16:06)
[2022-06-19] MEDS: cefTRIAXone 1 gm/50 mL D5W 1 GM/50 ML BAG IV SCH (16:05)
[2022-06-19] MEDS: Enoxaparin 40 MG/0.4 ML SYR SUBCUT SCH (16:06)
[2022-06-19] MEDS: Senna TAB 8.6 mg TAB PO SCH (20:54)
[2022-06-20] MEDS: Tiotropium Brom/Olodaterol MDI INH SCH (07:43)
[2022-06-20 08:28] LABS: ABS Basophils 0.1 10^3/ul (0-0.2); ABS Eosinophils 0.2 10^3/ul (0-0.6); ABS Lymphocytes 1.2 10^3/ul (1.0-4.8); ABS Monocytes 1.2 10^3/ul (0-0.8); ABS Neutrophils 8.4 10^3/ul (1.5-7.7); Eosinophil % 1.5 %; Hematocrit 31 % (42-52); Hemoglobin 9.9 g/dL (14.0-18.0); Mean Corpuscular HGB Conc 32 g/dL (31-36); Mean Corpuscular Hemoglobin 31 pg (27-31); Mean Corpuscular Volume 95 fL (80-94); Mean Platelet Volume 9.6 fL (7.4-10.4); Platelet Count 239 10^3/uL (150-450); Red Blood Count 3.22 10^6 /uL (4.18-5.48); Red Cell Distribution Width 14 % (10-15); White Blood Count 11.1 10^3/uL (3.5-10.8)
[2022-06-20 09:13] LABS: Blood Urea Nitrogen 28 mg/dL (6-24); CO2 Carbon Dioxide 39 mmol/L (22-32); Calcium 8.5 mg/dL (8.6-10.3); Chloride 102 mmol/L (101-111); Creatinine, Serum 0.76 mg/dL (0.67-1.17); Glucose 74 mg/dL (70-100); Magnesium 1.9 mg/dL (1.9-2.7); Potassium 4.2 mmol/L (3.5-5.0); Sodium 138 mmol/L (135-145); eGFR CKD-EPI 102.9 (>60)
[2022-06-20] MEDS: Polyethylene Glycol 3350 17 GM PACKET PO SCH ×2 (09:48→17:08)
[2022-06-20 09:56] LABS: % Iron Saturation 16 % (15-55); Iron 38 ug/dL (50-212); Total Iron Binding Capacity 238 mcg/dL (250-450); Transferrin 170 mg/dL (203-362); Unsaturated Iron Binding 200 ug/dL
[2022-06-20 10:17] LABS: Ferritin 187.6 ng/mL (24-336)
[2022-06-20] MEDS: Enoxaparin 40 MG/0.4 ML SYR SUBCUT SCH (17:07)
[2022-06-20] MEDS: cefTRIAXone 1 gm/50 mL D5W 1 GM/50 ML BAG IV SCH (17:08)
[2022-06-20] MEDS: Senna TAB 8.6 mg TAB PO SCH (20:11)
[2022-06-21 06:31] LABS: Hematocrit 28 % (42-52); Hemoglobin 9.2 g/dL (14.0-18.0); Mean Corpuscular HGB Conc 33 g/dL (31-36); Mean Corpuscular Hemoglobin 31 pg (27-31); Mean Corpuscular Volume 95 fL (80-94); Mean Platelet Volume 8.9 fL (7.4-10.4); Platelet Count 275 10^3/uL (150-450); Red Blood Count 2.95 10^6 /uL (4.18-5.48); Red Cell Distribution Width 14 % (10-15); White Blood Count 10.3 10^3/uL (3.5-10.8)
[2022-06-21 07:13] LABS: Calcium 8.4 mg/dL (8.6-10.3); Creatinine, Serum 0.89 mg/dL (0.67-1.17); Magnesium 1.9 mg/dL (1.9-2.7); Phosphorus 3.8 mg/dL (2.5-5.0); Potassium 4.6 mmol/L (3.5-5.0); eGFR CKD-EPI 98.1 (>60)
[2022-06-21] MEDS: Tiotropium Brom/Olodaterol MDI INH SCH (08:27)
[2022-06-21] MEDS: Polyethylene Glycol 3350 17 GM PACKET PO SCH ×2 (10:33→18:47)
[2022-06-21 15:10] LABS: High Sensitivity Troponin 1 Hr 144 pg/mL (<20)
[2022-06-21] MEDS: Enoxaparin 40 MG/0.4 ML SYR SUBCUT SCH (15:39)
[2022-06-21] MEDS ORDERED: Iohexol 350 (CONTRAST) 500 ML MDV IV ONE (16:57)
[2022-06-21] MEDS ORDERED: Nitroglycerin 0.3 mg TAB SL PRN (17:59)
[2022-06-21] MEDS ORDERED: Magnesium Sulfate 2 gm BAG 2 GM/50 ML BAG IVPB ONE (18:35)
[2022-06-21 18:50] LABS: Folate 5.1 ng/mL (5.90-24.80)
[2022-06-21] MEDS: Senna TAB 8.6 mg TAB PO SCH (20:03)
[2022-06-22 06:04] LABS: Hematocrit 26 % (42-52); Hemoglobin 8.3 g/dL (14.0-18.0); Mean Corpuscular HGB Conc 32 g/dL (31-36); Mean Corpuscular Hemoglobin 30 pg (27-31); Mean Corpuscular Volume 95 fL (80-94); Mean Platelet Volume 9.1 fL (7.4-10.4); Platelet Count 290 10^3/uL (150-450); Red Blood Count 2.74 10^6 /uL (4.18-5.48); Red Cell Distribution Width 14 % (10-15); White Blood Count 11.7 10^3/uL (3.5-10.8)
[2022-06-22 06:34] LABS: Blood Urea Nitrogen 30 mg/dL (6-24); C Reactive Protein 19.38 mg/L (<8.01); CO2 Carbon Dioxide 38 mmol/L (22-32); Calcium 8.3 mg/dL (8.6-10.3); Chloride 102 mmol/L (101-111); Creatinine, Serum 0.82 mg/dL (0.67-1.17); Glucose 77 mg/dL (70-100); Magnesium 2.2 mg/dL (1.9-2.7); Potassium 4.7 mmol/L (3.5-5.0); Sodium 138 mmol/L (135-145); eGFR CKD-EPI 100.6 (>60)
[2022-06-22] MEDS: Tiotropium Brom/Olodaterol MDI INH SCH (08:07)
[2022-06-22] MEDS ORDERED: Aminophylline 25 MG/ML VIAL ONE (09:57)
[2022-06-22] MEDS ORDERED: Regadenoson 0.4 MG/5 ML SYRINGE ONE (09:57)
[2022-06-22] MEDS: Polyethylene Glycol 3350 17 GM PACKET PO SCH ×2 (11:20→16:41)
[2022-06-22] MEDS: Aspirin EC 81 mg TAB.EC (enteric coated) PO SCH (11:27)
[2022-06-22] MEDS: Senna TAB 8.6 mg TAB PO SCH (21:03)
[2022-06-23] MEDS: Tiotropium Brom/Olodaterol MDI INH SCH (07:22)
[2022-06-23] MEDS ORDERED: Thiamine 100 MG/ML 2 ml VIAL 100 MG, Folic Acid IV 1 MG, Multiple Vitamin IV ADULT 10 M... IV ONE (07:36)
[2022-06-23] MEDS: Aspirin EC 81 mg TAB.EC (enteric coated) PO SCH (08:20)
[2022-06-23] MEDS: Polyethylene Glycol 3350 17 GM PACKET PO SCH ×2 (08:21→16:13)
[2022-06-23] MEDS: Senna TAB 8.6 mg TAB PO SCH (21:12)
[2022-06-24] MEDS: Tiotropium Brom/Olodaterol MDI INH SCH (07:16)
[2022-06-24] MEDS: Polyethylene Glycol 3350 17 GM PACKET PO SCH ×2 (08:04→15:18)
[2022-06-24] MEDS: Aspirin EC 81 mg TAB.EC (enteric coated) PO SCH (08:04)
[2022-06-24] MEDS: Senna TAB 8.6 mg TAB PO SCH (20:19)
[2022-06-25] MEDS: Aspirin EC 81 mg TAB.EC (enteric coated) PO SCH (07:50)
[2022-06-25] MEDS: Polyethylene Glycol 3350 17 GM PACKET PO SCH (07:51)
[2022-06-25 11:28] LABS: Rapid COVID-19 Molecular Undetected (Undetected)
[2022-06-25 15:17] VITALS: BP 104/69
== END 2022-06-25 16:15 | DRG 871 ==
LOC: ED 14:23 → SUATTDRO 17:20 → EDHOLD 17:20 → MEDTELE 22:00 → SSU 06-24 22:22
PROVIDERS: ADMIT Internal Medicine; ATTEND Internal Medicine Hematology & Oncology

== ENCOUNTER 2023-04-27 20:40 | Observation (INO) ==
[2023-04-27] MEDS ORDERED: methylPREDNISolone SOD SUCC 125 mg 2 ML VIAL IV ONE (21:06)
[2023-04-27] MEDS ORDERED: NS 0.9% 500 ml BAG 500 ML IV ONE (21:07)
[2023-04-27] MEDS: Albuterol 2.5mg/3 ml (0.083%) NEB.SOLN INH ONE ×2 (21:36→21:45)
[2023-04-27] MEDS ORDERED: Albuterol 2.5mg/3 ml (0.083%) NEB.SOLN INH ONE ×2 (21:38→23:30)
[2023-04-27 21:48] LABS: ABS Basophils 0.1 10^3/uL (0.0-0.1); ABS Eosinophils 0.3 10^3/uL (0.0-0.5); ABS Lymphocytes 1.7 10^3/uL (1.0-4.8); ABS Monocytes 1.2 10^3/uL (0.0-1.1); ABS Nucleated RBC 0.01 10^3/ul; Eosinophil % 2.9 %; Hematocrit 45.1 % (38-53); Hemoglobin 15.1 g/dL (13.2-16.3); Lymphocyte % 16.5 %; Mean Corpuscular Hemoglobin 30.5 pg (27-33); Mean Corpuscular Hgb Conc 33.5 g/dL (31-36); Mean Corpuscular Volume 91.2 fL (80-97); Mean Platelet Volume 9.3 fL (7.5-11.2); Nucleated Red Blood Cells % 0.1 %/100WBC (0.0-0.8); Platelet Count 303 10^3/uL (150-450); Red Blood Count 4.95 10^6/uL (4.06-5.63); White Blood Count 10.3 10^3/uL (3.6-10.2)
[2023-04-27 22:13] LABS: High Sens Troponin Baseline 7 pg/mL (<20)
[2023-04-27 22:15] LABS: ALT 9 U/L (7-52); Albumin 3.9 g/dL (3.2-5.2); Alkaline Phosphatase 117 U/L (35-149); Blood Urea Nitrogen 19 mg/dL (6-24); CO2 Carbon Dioxide 38 mmol/L (22-32); Calcium 9.6 mg/dL (8.6-10.3); Chloride 97 mmol/L (101-111); Creatinine, Serum 0.88 mg/dL (0.67-1.17); Glucose 90 mg/dL (70-100); Sodium 140 mmol/L (135-145); Total Bilirubin 0.4 mg/dL (0.2-1.0); Total Protein 7.9 g/dL (6.4-8.9); eGFR CKD-EPI 97.8 (>60)
[2023-04-27 22:24] LABS: Anion Gap 5 mmol/L (2-16)
[2023-04-27 23:20] LABS: Potassium Redraw 2.7 mmol/L (3.5-5.0)
[2023-04-27] MEDS ORDERED: Potassium Chlor 20 meq TAB.ER PO ONE (23:45)
[2023-04-27] MEDS ORDERED: Albuterol (2.5 MG) 0.5 % CONC 0.5 ML NEB.SOLN INH ONE (23:49)
[2023-04-28] MEDS ORDERED: Iohexol 350 (CONTRAST) 500 ML MDV IV ONE (01:24)
[2023-04-28] MEDS ORDERED: Albuterol 2.5mg/3 ml (0.083%) NEB.SOLN INH ONE (02:20)
[2023-04-28] MEDS ORDERED: methylPREDNISolone SOD SUCC 40 mg/ml 1 ml VIAL IV SCH ×2 (04:00→09:00)
[2023-04-28] MEDS ORDERED: cefTRIAXone 1 gm/50 mL D5W 1 GM/50 ML BAG IV SCH (04:00)
[2023-04-28] MEDS ORDERED: Lactated Ringers 1000 ml BAG 1,000 ML IV SCH (05:00)
[2023-04-28] MEDS ORDERED: Albuterol HFA INHALER 8 gm MDI INH PRN (05:28)
[2023-04-28] MEDS ORDERED: Albuterol/Ipratropium NEB.SOL (2.5/0.5 MG) 3 ML NEB.SOLN INH PRN (05:28)
[2023-04-28 05:49] LABS: ABS Lymphocytes 0.3 10^3/uL (1.0-4.8); ABS Monocytes 0.1 10^3/uL (0.0-1.1); ABS Neutrophils 12.8 10^3/uL (1.5-7.6); Hematocrit 41.9 % (38-53); Hemoglobin 13.7 g/dL (13.2-16.3); Lymphocyte % 2.2 %; Mean Corpuscular Hgb Conc 32.6 g/dL (31-36); Mean Platelet Volume 9.2 fL (7.5-11.2); Platelet Count 278 10^3/uL (150-450); Red Blood Count 4.56 10^6/uL (4.06-5.63); Red Cell Distribution Width 13.8 % (12-17); White Blood Count 13.3 10^3/uL (3.6-10.2)
[2023-04-28] MEDS ORDERED: DOXYcycline 100 MG in NS 0.9% 250 ml 250 ML IVPB SCH (06:00)
[2023-04-28 06:04] LABS: Calcium 9.2 mg/dL (8.6-10.3); Creatinine, Serum 0.95 mg/dL (0.67-1.17); Magnesium 1.8 mg/dL (1.9-2.7); Phosphorus 2.7 mg/dL (2.5-5.0); Potassium 3.6 mmol/L (3.5-5.0); eGFR CKD-EPI 91.1 (>60)
[2023-04-28 06:49] LABS: TSH Ultra Thyroid Stim Horm 0.4 mcIU/mL (0.34-5.60)
[2023-04-28 06:59] LABS: Folate 6.11 ng/mL (5.90-24.80)
[2023-04-28] MEDS ORDERED: Albuterol/Ipratropium NEB.SOL (2.5/0.5 MG) 3 ML NEB.SOLN INH SCH (07:00)
[2023-04-28 07:04] LABS: Vitamin D Total 25(OH) 21.3 ng/mL (20-50)
[2023-04-28] MEDS: FLUTICAS/UMECLI/VILANT 100-62.5-25 MDI (NF) INH SCH (07:53)
[2023-04-28] MEDS: Enoxaparin 40 MG/0.4 ML SYR SUBCUT SCH (07:55)
[2023-04-28] MEDS: methylPREDNISolone SOD SUCC 40 mg/ml 1 ml VIAL IV SCH ×2 (09:49→17:14)
[2023-04-28] MEDS: Cholecalciferol (VIT D3) 400 units TAB PO SCH (17:14)
[2023-04-29] MEDS: methylPREDNISolone SOD SUCC 40 mg/ml 1 ml VIAL IV SCH ×2 (02:19→09:02)
[2023-04-29 07:03] LABS: Hematocrit 39.7 % (38-53); Mean Corpuscular Hemoglobin 29.5 pg (27-33); Mean Corpuscular Hgb Conc 32.7 g/dL (31-36); Mean Corpuscular Volume 90.4 fL (80-97); Mean Platelet Volume 9.7 fL (7.5-11.2); Platelet Count 279 10^3/uL (150-450); Red Blood Count 4.39 10^6/uL (4.06-5.63); Red Cell Distribution Width 14.3 % (12-17); White Blood Count 29.2 10^3/uL (3.6-10.2)
[2023-04-29 07:11] LABS: Calcium 9.2 mg/dL (8.6-10.3); Creatinine, Serum 0.84 mg/dL (0.67-1.17); Magnesium 1.8 mg/dL (1.9-2.7); Phosphorus 4.3 mg/dL (2.5-5.0); eGFR CKD-EPI 99.2 (>60)
[2023-04-29] MEDS: Cholecalciferol (VIT D3) 400 units TAB PO SCH (07:27)
[2023-04-29] MEDS: Enoxaparin 40 MG/0.4 ML SYR SUBCUT SCH (07:28)
[2023-04-29] MEDS: FLUTICAS/UMECLI/VILANT 100-62.5-25 MDI (NF) INH SCH (07:30)
[2023-04-29] MEDS ORDERED: Magnesium Sulfate 2 gm BAG 2 GM/50 ML BAG IVPB ONE ×2 (08:00→13:15)
[2023-04-29 10:37] LABS: ABS Basophils 0.1 10^3/uL (0.0-0.1); ABS Lymphocytes 0.9 10^3/uL (1.0-4.8); ABS Monocytes 1.2 10^3/uL (0.0-1.1); Lymphocyte % 2.9 %
[2023-04-29] MEDS ORDERED: Pneumococcal 20-Valent Conj 0.5 ML SYR Vaccine IM ONE (14:14)
[2023-04-29] MEDS ORDERED: COVID VAC 23-24(12+)(Moderna) SYR 0.5 ML IM ONE (14:18)
[2023-04-29 14:33] VITALS: BP 126/82
== END 2023-04-29 17:00 | disposition home or self-care (01) ==
LOC: ED 20:40 → EDHOLD 20:40 → SUATTDRO 04-28 03:48 → MEDTELE 04-28 07:49
PROVIDERS: ADMIT Internal Medicine; ATTEND Internal Medicine

== ENCOUNTER 2023-05-31 13:33 | Inpatient (IN) ==
[2023-05-31] MEDS ORDERED: Albuterol/Ipratropium NEB.SOL (2.5/0.5 MG) 3 ML NEB.SOLN ONE (13:53)
[2023-05-31] MEDS ORDERED: NS 0.9% 1000 ml BAG 1,000 ML IV ONE (13:55)
[2023-05-31] MEDS: Albuterol/Ipratropium NEB.SOL (2.5/0.5 MG) 3 ML NEB.SOLN INH SCH ×2 (13:58→19:37)
[2023-05-31 14:13] LABS: Hematocrit 47.1 % (38-53); Hemoglobin 15.6 g/dL (13.2-16.3); Mean Corpuscular Hemoglobin 30.1 pg (27-33); Mean Corpuscular Volume 91.2 fL (80-97); Mean Platelet Volume 9.7 fL (7.5-11.2); Platelet Count 414 10^3/uL (150-450); Red Blood Count 5.17 10^6/uL (4.06-5.63); Red Cell Distribution Width 14.9 % (12-17); White Blood Count 19.3 10^3/uL (3.6-10.2)
[2023-05-31 14:24] LABS: Rapid COVID-19 Molecular Undetected (Undetected)
[2023-05-31] MEDS ORDERED: Magnesium Sulfate 2 gm BAG 2 GM/50 ML BAG IVPB ONE (14:29)
[2023-05-31 14:33] LABS: Albumin/Globulin Ratio 0.9 (1-3); Calcium 9.2 mg/dL (8.6-10.3); Creatinine, Serum 0.95 mg/dL (0.67-1.17); Globulin 4.7 g/dL (2-4); Magnesium 1.8 mg/dL (1.9-2.7); Potassium 3.7 mmol/L (3.5-5.0); Total Bilirubin 0.4 mg/dL (0.2-1.0); Total Protein 8.7 g/dL (6.4-8.9); eGFR CKD-EPI 91.1 (>60)
[2023-05-31 14:41] LABS: Venous Bicarbonate HCO3 25.4 mmol/L (24-28)
[2023-05-31 14:46] LABS: Influenza A Molecular Negative (Negative); Influenza B Molecular Negative (Negative)
[2023-05-31] MEDS ORDERED: DOXYcycline 100 MG in NS 0.9% 250 ml 250 ML IVPB ONE (15:08)
[2023-05-31] MEDS ORDERED: cefTRIAXone 1 gm/50 mL D5W 1 GM/50 ML BAG IV ONE (15:09)
[2023-05-31 15:37] LABS: ABS Basophils 0.1 10^3/uL (0.0-0.1); ABS Lymphocytes 1.6 10^3/uL (1.0-4.8); ABS Monocytes 2.4 10^3/uL (0.0-1.1); ABS Neutrophils 15.2 10^3/uL (1.5-7.6); ABS Nucleated RBC 0.05 10^3/ul; Eosinophil % 0.2 %; Lymphocyte % 8.1 %; Nucleated Red Blood Cells % 0.3 %/100WBC (0.0-0.8)
[2023-05-31 15:38] LABS: High Sensitivity Troponin 1 Hr 349 pg/mL (<20)
[2023-05-31 16:00] LABS: INR 1.17 (0.83-1.13)
[2023-05-31 19:44] LABS: PCO2 Arterial 52 mmHg (35-45); PO2 Arterial 96 mmHg (80-100)
[2023-05-31] MEDS: methylPREDNISolone SOD SUCC 40 mg/ml 1 ml VIAL IV SCH (23:50)
[2023-05-31] MEDS: Enoxaparin 40 MG/0.4 ML SYR SUBCUT SCH (23:50)
[2023-06-01] MEDS: methylPREDNISolone SOD SUCC 40 mg/ml 1 ml VIAL IV SCH ×3 (05:14→20:16)
[2023-06-01 05:41] LABS: ABS Basophils 0.1 10^3/uL (0.0-0.1); ABS Monocytes 0.4 10^3/uL (0.0-1.1); ABS Neutrophils 6.8 10^3/uL (1.5-7.6); ABS Nucleated RBC 0.01 10^3/ul; Hematocrit 38.4 % (38-53); Lymphocyte % 11.7 %; Mean Corpuscular Hemoglobin 30.8 pg (27-33); Mean Corpuscular Hgb Conc 33.8 g/dL (31-36); Mean Platelet Volume 9.4 fL (7.5-11.2); Nucleated Red Blood Cells % 0.1 %/100WBC (0.0-0.8); Platelet Count 298 10^3/uL (150-450); Red Blood Count 4.21 10^6/uL (4.06-5.63); Red Cell Distribution Width 14.2 % (12-17); White Blood Count 8.2 10^3/uL (3.6-10.2)
[2023-06-01 07:08] LABS: Calcium 8.6 mg/dL (8.6-10.3); Creatinine, Serum 0.78 mg/dL (0.67-1.17); Potassium 3.8 mmol/L (3.5-5.0); eGFR CKD-EPI 101.5 (>60)
[2023-06-01] MEDS: Albuterol/Ipratropium NEB.SOL (2.5/0.5 MG) 3 ML NEB.SOLN INH SCH ×4 (07:36→19:08)
[2023-06-01] MEDS: Cholecalciferol (VIT D3) 400 units TAB PO SCH (10:44)
[2023-06-01] MEDS: Enoxaparin 40 MG/0.4 ML SYR SUBCUT SCH (20:16)
[2023-06-02] MEDS: methylPREDNISolone SOD SUCC 40 mg/ml 1 ml VIAL IV SCH ×2 (04:45→12:50)
[2023-06-02] MEDS: Albuterol/Ipratropium NEB.SOL (2.5/0.5 MG) 3 ML NEB.SOLN INH SCH ×4 (07:22→17:15)
[2023-06-02] MEDS: Cholecalciferol (VIT D3) 400 units TAB PO SCH (09:44)
[2023-06-02] MEDS ORDERED: Albuterol/Ipratropium NEB.SOL (2.5/0.5 MG) 3 ML NEB.SOLN INH SCH (13:00)
[2023-06-02] MEDS: cefTRIAXone 1 gm/50 mL D5W 1 GM/50 ML BAG IV SCH (13:22)
[2023-06-02] MEDS ORDERED: Senna TAB 8.6 mg TAB PO PRN (13:27)
[2023-06-02] MEDS: Polyethylene Glycol 3350 17 GM PACKET PO SCH (16:01)
[2023-06-02] MEDS: Enoxaparin 40 MG/0.4 ML SYR SUBCUT SCH (21:57)
[2023-06-03] MEDS: Albuterol/Ipratropium NEB.SOL (2.5/0.5 MG) 3 ML NEB.SOLN INH SCH ×2 (07:37→19:22)
[2023-06-03] MEDS ORDERED: Albuterol/Ipratropium NEB.SOL (2.5/0.5 MG) 3 ML NEB.SOLN INH PRN (07:40)
[2023-06-03] MEDS: Cholecalciferol (VIT D3) 400 units TAB PO SCH (11:09)
[2023-06-03] MEDS: Polyethylene Glycol 3350 17 GM PACKET PO SCH (11:09)
[2023-06-03] MEDS: FLUTICAS/UMECLI/VILANT 200-62.5-25 MDI (NF) INH SCH (12:26)
[2023-06-03] MEDS: Morphine ORAL CONCENTRATE 5 MG/0.25 ML ORAL.SYRIN SL PRN (12:37)
[2023-06-03] MEDS: cefTRIAXone 1 gm/50 mL D5W 1 GM/50 ML BAG IV SCH (12:38)
[2023-06-03] MEDS: Enoxaparin 40 MG/0.4 ML SYR SUBCUT SCH (22:07)
[2023-06-04] MEDS: FLUTICAS/UMECLI/VILANT 200-62.5-25 MDI (NF) INH SCH (07:31)
[2023-06-04] MEDS: Albuterol/Ipratropium NEB.SOL (2.5/0.5 MG) 3 ML NEB.SOLN INH SCH ×4 (07:54→19:16)
[2023-06-04] MEDS: Polyethylene Glycol 3350 17 GM PACKET PO SCH (10:43)
[2023-06-04] MEDS: Cholecalciferol (VIT D3) 400 units TAB PO SCH (10:44)
[2023-06-04] MEDS: cefTRIAXone 1 gm/50 mL D5W 1 GM/50 ML BAG IV SCH (11:56)
[2023-06-04] MEDS: Morphine ORAL CONCENTRATE 5 MG/0.25 ML ORAL.SYRIN SL PRN (17:44)
[2023-06-04] MEDS: Enoxaparin 40 MG/0.4 ML SYR SUBCUT SCH (20:28)
[2023-06-05] MEDS: FLUTICAS/UMECLI/VILANT 200-62.5-25 MDI (NF) INH SCH (08:06)
[2023-06-05] MEDS: Albuterol/Ipratropium NEB.SOL (2.5/0.5 MG) 3 ML NEB.SOLN INH SCH ×4 (08:08→20:32)
[2023-06-05] MEDS: Cholecalciferol (VIT D3) 400 units TAB PO SCH (10:18)
[2023-06-05] MEDS: Polyethylene Glycol 3350 17 GM PACKET PO SCH (10:18)
[2023-06-05 10:52] LABS: HDL Cholesterol 53.9 mg/dL
[2023-06-05 10:55] LABS: Calcium 9.7 mg/dL (8.6-10.3); Creatinine, Serum 0.91 mg/dL (0.67-1.17); HDL Cholesterol 55.5 mg/dL; Magnesium 1.8 mg/dL (1.9-2.7); Phosphorus 3.1 mg/dL (2.5-5.0); Potassium 4.5 mmol/L (3.5-5.0); eGFR CKD-EPI 95.9 (>60)
[2023-06-05] MEDS: cefTRIAXone 1 gm/50 mL D5W 1 GM/50 ML BAG IV SCH (12:13)
[2023-06-05] MEDS: Morphine ORAL CONCENTRATE 5 MG/0.25 ML ORAL.SYRIN SL PRN ×2 (12:21→22:01)
[2023-06-05 12:33] LABS: Hematocrit 42.7 % (38-53); Hemoglobin 14.1 g/dL (13.2-16.3); Mean Corpuscular Hemoglobin 30.2 pg (27-33); Mean Corpuscular Hgb Conc 33.1 g/dL (31-36); Mean Corpuscular Volume 91.2 fL (80-97); Mean Platelet Volume 9.4 fL (7.5-11.2); Platelet Count 394 10^3/uL (150-450); Red Blood Count 4.68 10^6/uL (4.06-5.63); Red Cell Distribution Width 14.6 % (12-17); White Blood Count 20.6 10^3/uL (3.6-10.2)
[2023-06-05 13:13] LABS: ABS Basophils 0.1 10^3/uL (0.0-0.1); ABS Lymphocytes 2.3 10^3/uL (1.0-4.8); ABS Monocytes 2.5 10^3/uL (0.0-1.1); ABS Neutrophils 15.6 10^3/uL (1.5-7.6); ABS Nucleated RBC 0.01 10^3/ul; Eosinophil % 0.1 %; Lymphocyte % 11.4 %
[2023-06-05] MEDS ORDERED: Lactated Ringers 1000 ml BAG 500 ML IV SCH (19:00)
[2023-06-05] MEDS: Enoxaparin 40 MG/0.4 ML SYR SUBCUT SCH (20:15)
[2023-06-06 06:07] LABS: Hematocrit 41.7 % (38-53); Hemoglobin 13.6 g/dL (13.2-16.3); Mean Corpuscular Hemoglobin 29.9 pg (27-33); Mean Corpuscular Hgb Conc 32.6 g/dL (31-36); Mean Corpuscular Volume 91.7 fL (80-97); Mean Platelet Volume 10.1 fL (7.5-11.2); Platelet Count 343 10^3/uL (150-450); Red Blood Count 4.54 10^6/uL (4.06-5.63); Red Cell Distribution Width 14.5 % (12-17); White Blood Count 18.9 10^3/uL (3.6-10.2)
[2023-06-06 06:28] LABS: Creatinine, Serum 0.79 mg/dL (0.67-1.17); Magnesium 1.8 mg/dL (1.9-2.7); Potassium 4.9 mmol/L (3.5-5.0); eGFR CKD-EPI 101.1 (>60)
[2023-06-06 06:47] LABS: ABS Monocytes 1.8 10^3/uL (0.0-1.1); ABS Nucleated RBC 0.02 10^3/ul; Eosinophil % 0.1 %; Lymphocyte % 10.7 %; Nucleated Red Blood Cells % 0.1 %/100WBC (0.0-0.8)
[2023-06-06] MEDS: FLUTICAS/UMECLI/VILANT 200-62.5-25 MDI (NF) INH SCH (07:08)
[2023-06-06] MEDS: Albuterol/Ipratropium NEB.SOL (2.5/0.5 MG) 3 ML NEB.SOLN INH SCH ×3 (07:09→19:54)
[2023-06-06] MEDS: Cholecalciferol (VIT D3) 400 units TAB PO SCH (08:32)
[2023-06-06] MEDS: Polyethylene Glycol 3350 17 GM PACKET PO SCH (10:42)
[2023-06-06] MEDS ORDERED: Lactated Ringers 1000 ml BAG 1,000 ML IV SCH (11:00)
[2023-06-06] MEDS: cefTRIAXone 1 gm/50 mL D5W 1 GM/50 ML BAG IV SCH (12:17)
[2023-06-06] MEDS: Enoxaparin 40 MG/0.4 ML SYR SUBCUT SCH (19:58)
[2023-06-07] MEDS: Albuterol/Ipratropium NEB.SOL (2.5/0.5 MG) 3 ML NEB.SOLN INH SCH (07:22)
[2023-06-07] MEDS: FLUTICAS/UMECLI/VILANT 200-62.5-25 MDI (NF) INH SCH (07:23)
[2023-06-07] MEDS: Cholecalciferol (VIT D3) 400 units TAB PO SCH (09:26)
[2023-06-07] MEDS: Polyethylene Glycol 3350 17 GM PACKET PO SCH (09:27)
[2023-06-07 10:04] VITALS: BP 102/77
[2023-06-07 10:41] LABS: Hematocrit 40.6 % (38-53); Hemoglobin 13.3 g/dL (13.2-16.3); Mean Corpuscular Hemoglobin 29.7 pg (27-33); Mean Corpuscular Hgb Conc 32.7 g/dL (31-36); Mean Corpuscular Volume 90.8 fL (80-97); Mean Platelet Volume 9.7 fL (7.5-11.2); Platelet Count 326 10^3/uL (150-450); Red Blood Count 4.47 10^6/uL (4.06-5.63); Red Cell Distribution Width 14.4 % (12-17); White Blood Count 26.4 10^3/uL (3.6-10.2)
[2023-06-07 11:13] LABS: Calcium 8.9 mg/dL (8.6-10.3); Creatinine, Serum 0.78 mg/dL (0.67-1.17); Potassium 4.2 mmol/L (3.5-5.0); eGFR CKD-EPI 101.5 (>60)
[2023-06-07 11:28] LABS: ABS Basophils 0.1 10^3/uL (0.0-0.1); ABS Lymphocytes 1.9 10^3/uL (1.0-4.8); ABS Monocytes 2.2 10^3/uL (0.0-1.1); ABS Neutrophils 22.3 10^3/uL (1.5-7.6); ABS Nucleated RBC 0.01 10^3/ul
[2023-06-07] MEDS: cefTRIAXone 1 gm/50 mL D5W 1 GM/50 ML BAG IV SCH (11:51)
[2023-06-07] MEDS ORDERED: Albuterol/Ipratropium NEB.SOL (2.5/0.5 MG) 3 ML NEB.SOLN INH SCH (19:00)
== END 2023-06-07 14:35 | disposition home or self-care (01) | DRG 193 ==
LOC: ED 13:33 → EDHOLD 17:58 → MED 17:58 → SUATTDRO 17:58 → ICU 20:01 → MED 06-01 18:19
PROVIDERS: ADMIT Internal Medicine; ATTEND Hospitalist

== ENCOUNTER 2023-06-12 13:28 | Inpatient (IN) ==
[2023-06-12] MEDS: methylPREDNISolone SOD SUCC 125 mg 2 ML VIAL IV ONE (13:59)
[2023-06-12 14:01] LABS: Resp Rate 16
[2023-06-12 14:04] LABS: PCO2 Arterial 59 mmHg (35-45); PO2 Arterial 142 mmHg (80-100)
[2023-06-12 14:14] LABS: Hematocrit 47.4 % (38-53); Hemoglobin 15.2 g/dL (13.2-16.3); Mean Corpuscular Hemoglobin 29.8 pg (27-33); Mean Corpuscular Hgb Conc 32.1 g/dL (31-36); Mean Platelet Volume 10.2 fL (7.5-11.2); Platelet Count 366 10^3/uL (150-450); White Blood Count 41.3 10^3/uL (3.6-10.2)
[2023-06-12] MEDS: Albuterol/Ipratropium NEB.SOL (2.5/0.5 MG) 3 ML NEB.SOLN INH PRN (14:26)
[2023-06-12] MEDS: Albuterol/Ipratropium NEB.SOL (2.5/0.5 MG) 3 ML NEB.SOLN INH ONE (14:26)
[2023-06-12 14:31] LABS: Albumin 3.8 g/dL (3.2-5.2); Creatinine, Serum 0.77 mg/dL (0.67-1.17); Globulin 3.7 g/dL (2-4); Total Bilirubin 0.5 mg/dL (0.2-1.0); Total Protein 7.5 g/dL (6.4-8.9); eGFR CKD-EPI 101.9 (>60)
[2023-06-12] MEDS: Lactated Ringers 1000 ml BAG 1,000 ML IV ONE (15:01)
[2023-06-12] MEDS: Cefepime 2 GM in Dextrose 2 GM/50 ML BAG IV ONE (15:02)
[2023-06-12 15:10] LABS: ABS Basophils 0.1 10^3/uL (0.0-0.1); ABS Eosinophils 0.1 10^3/uL (0.0-0.5); ABS Lymphocytes 3.7 10^3/uL (1.0-4.8); ABS Monocytes 2.7 10^3/uL (0.0-1.1); ABS Neutrophils 34.7 10^3/uL (1.5-7.6); ABS Nucleated RBC 0.02 10^3/ul; Eosinophil % 0.3 %; Lymphocyte % 8.9 %
[2023-06-12 15:11] LABS: Potassium 4.1 mmol/L (3.5-5.0)
[2023-06-12] MEDS: Albuterol 2.5mg/3 ml (0.083%) NEB.SOLN INH ONE (16:12)
[2023-06-12] MEDS: DOXYcycline 100 MG in NS 0.9% 250 ml 250 ML IVPB ONE (17:46)
[2023-06-12] MEDS: Furosemide 40 mg/4 ml IV VIAL IV SLOW PU ONE (17:47)
[2023-06-12] MEDS: Albuterol/Ipratropium NEB.SOL (2.5/0.5 MG) 3 ML NEB.SOLN INH SCH (20:52)
[2023-06-12] MEDS: Cefepime 2 GM in Dextrose 2 GM/50 ML BAG IV SCH (22:26)
[2023-06-12] MEDS: methylPREDNISolone SOD SUCC 40 mg/ml 1 ml VIAL IV SCH (22:26)
[2023-06-13 06:31] LABS: Hematocrit 41.1 % (38-53); Hemoglobin 13.5 g/dL (13.2-16.3); Mean Corpuscular Hemoglobin 30.3 pg (27-33); Mean Corpuscular Hgb Conc 32.8 g/dL (31-36); Mean Corpuscular Volume 92.4 fL (80-97); Mean Platelet Volume 9.9 fL (7.5-11.2); Platelet Count 303 10^3/uL (150-450); Red Blood Count 4.45 10^6/uL (4.06-5.63); Red Cell Distribution Width 14.8 % (12-17); White Blood Count 34.2 10^3/uL (3.6-10.2)
[2023-06-13 06:51] LABS: Creatinine, Serum 0.86 mg/dL (0.67-1.17); Magnesium 1.7 mg/dL (1.9-2.7); Potassium 4.4 mmol/L (3.5-5.0); eGFR CKD-EPI 98.5 (>60)
[2023-06-13 06:52] LABS: ABS Basophils 0.1 10^3/uL (0.0-0.1); ABS Lymphocytes 0.7 10^3/uL (1.0-4.8); ABS Monocytes 0.8 10^3/uL (0.0-1.1); ABS Neutrophils 32.7 10^3/uL (1.5-7.6)
[2023-06-13] MEDS: DOXYcycline 100 MG in NS 0.9% 250 ml 250 ML IVPB SCH (07:23)
[2023-06-13] MEDS ORDERED: FLUTICAS/UMECLI/VILANT 100-62.5-25 MDI (NF) INH SCH (09:00)
[2023-06-13] MEDS ORDERED: cefTRIAXone 1 gm/50 mL D5W 1 GM/50 ML BAG IV SCH (09:00)
[2023-06-13] MEDS: Senna TAB 8.6 mg TAB PO SCH (09:08)
[2023-06-13] MEDS: Magnesium Sulfate 2 gm BAG 2 GM/50 ML BAG IVPB ONE (09:08)
[2023-06-13] MEDS: Cholecalciferol (VIT D3) 1,000 unit TAB PO SCH (09:08)
[2023-06-13] MEDS: Polyethylene Glycol 3350 17 GM PACKET PO SCH (09:09)
[2023-06-13] MEDS: Enoxaparin 40 MG/0.4 ML SYR SUBCUT SCH (13:57)
[2023-06-13] MEDS: Albuterol/Ipratropium NEB.SOL (2.5/0.5 MG) 3 ML NEB.SOLN INH SCH (14:16)
[2023-06-13] MEDS: Cefepime 2 GM in Dextrose 2 GM/50 ML BAG IV SCH (16:31)
[2023-06-14 06:11] LABS: Hematocrit 40.7 % (38-53); Hemoglobin 13.2 g/dL (13.2-16.3); Mean Corpuscular Hemoglobin 29.6 pg (27-33); Mean Corpuscular Hgb Conc 32.5 g/dL (31-36); Mean Platelet Volume 10.1 fL (7.5-11.2); Platelet Count 334 10^3/uL (150-450); Red Blood Count 4.47 10^6/uL (4.06-5.63); Red Cell Distribution Width 14.9 % (12-17)
[2023-06-14 06:27] LABS: Calcium 9.1 mg/dL (8.6-10.3); Creatinine, Serum 0.88 mg/dL (0.67-1.17); Magnesium 2.1 mg/dL (1.9-2.7); Potassium 4.7 mmol/L (3.5-5.0); eGFR CKD-EPI 97.8 (>60)
[2023-06-14 06:50] LABS: ABS Basophils 0.1 10^3/uL (0.0-0.1); ABS Lymphocytes 0.6 10^3/uL (1.0-4.8); ABS Monocytes 1.2 10^3/uL (0.0-1.1); ABS Neutrophils 37.1 10^3/uL (1.5-7.6); ABS Nucleated RBC 0.02 10^3/ul; Lymphocyte % 1.7 %
[2023-06-14] MEDS: Albuterol/Ipratropium NEB.SOL (2.5/0.5 MG) 3 ML NEB.SOLN INH SCH (19:16)
[2023-06-15 05:51] LABS: Hematocrit 37.2 % (38-53); Hemoglobin 12.3 g/dL (13.2-16.3); Mean Corpuscular Hemoglobin 29.9 pg (27-33); Mean Corpuscular Volume 90.8 fL (80-97); Mean Platelet Volume 9.8 fL (7.5-11.2); Platelet Count 323 10^3/uL (150-450); White Blood Count 31.9 10^3/uL (3.6-10.2)
[2023-06-15 06:02] LABS: ABS Basophils 0.1 10^3/uL (0.0-0.1); ABS Lymphocytes 0.4 10^3/uL (1.0-4.8); ABS Monocytes 1.1 10^3/uL (0.0-1.1); ABS Neutrophils 30.2 10^3/uL (1.5-7.6); Lymphocyte % 1.3 %
[2023-06-15 06:08] LABS: Blood Urea Nitrogen 46 mg/dL (6-24); CO2 Carbon Dioxide 35 mmol/L (22-32); Chloride 100 mmol/L (101-111); Creatinine, Serum 0.67 mg/dL (0.67-1.17); Glucose 120 mg/dL (70-100); Magnesium 1.8 mg/dL (1.9-2.7); Potassium 4.9 mmol/L (3.5-5.0); Sodium 135 mmol/L (135-145); eGFR CKD-EPI 106.2 (>60)
[2023-06-15] MEDS: Magnesium Sulfate 2 gm BAG 2 GM/50 ML BAG IVPB ONE (07:51)
[2023-06-16 04:59] LABS: Hemoglobin 12.3 g/dL (13.2-16.3); Mean Corpuscular Hemoglobin 30.3 pg (27-33); Mean Corpuscular Hgb Conc 33.2 g/dL (31-36); Mean Corpuscular Volume 91.4 fL (80-97); Mean Platelet Volume 9.6 fL (7.5-11.2); Platelet Count 315 10^3/uL (150-450); Red Blood Count 4.05 10^6/uL (4.06-5.63); Red Cell Distribution Width 15.2 % (12-17); White Blood Count 27.8 10^3/uL (3.6-10.2)
[2023-06-16 05:05] LABS: ABS Lymphocytes 0.4 10^3/uL (1.0-4.8); ABS Monocytes 1.3 10^3/uL (0.0-1.1); Eosinophil % 0.1 %; Lymphocyte % 1.4 %
[2023-06-16 05:10] LABS: Calcium 8.8 mg/dL (8.6-10.3); Creatinine, Serum 0.73 mg/dL (0.67-1.17); Magnesium 1.9 mg/dL (1.9-2.7); Phosphorus 2.6 mg/dL (2.5-5.0); Potassium 5.1 mmol/L (3.5-5.0); eGFR CKD-EPI 103.5 (>60)
[2023-06-16] MEDS: Furosemide 20 mg/2 ml IV VIAL IV SLOW PU ONE (08:02)
[2023-06-16] MEDS: Cefepime 2 GM in Dextrose 2 GM/50 ML BAG IV SCH (16:12)
[2023-06-17 07:18] LABS: Anion Gap 5 mmol/L (2-16); Blood Urea Nitrogen 44 mg/dL (6-24); CO2 Carbon Dioxide 31 mmol/L (22-32); Chloride 100 mmol/L (101-111); Glucose 68 mg/dL (70-100); Sodium 136 mmol/L (135-145); eGFR CKD-EPI 97.2 (>60)
[2023-06-17 08:32] LABS: Hematocrit 38.9 % (38-53); Mean Corpuscular Hemoglobin 30.4 pg (27-33); Mean Corpuscular Hgb Conc 33.4 g/dL (31-36); Mean Corpuscular Volume 90.9 fL (80-97); Mean Platelet Volume 9.4 fL (7.5-11.2); Platelet Count 295 10^3/uL (150-450); Red Blood Count 4.28 10^6/uL (4.06-5.63); Red Cell Distribution Width 15.2 % (12-17); White Blood Count 20.7 10^3/uL (3.6-10.2)
[2023-06-17 08:40] LABS: ABS Basophils 0.1 10^3/uL (0.0-0.1); ABS Eosinophils 0.1 10^3/uL (0.0-0.5); ABS Lymphocytes 2.3 10^3/uL (1.0-4.8); ABS Monocytes 1.8 10^3/uL (0.0-1.1); ABS Neutrophils 16.4 10^3/uL (1.5-7.6); Eosinophil % 0.5 %; Lymphocyte % 11.1 %
[2023-06-17 08:46] LABS: Magnesium 1.7 mg/dL (1.9-2.7); Phosphorus 2.7 mg/dL (2.5-5.0); Potassium Redraw 4.1 mmol/L (3.5-5.0)
[2023-06-17] MEDS: Magnesium Sulfate 2 gm BAG 2 GM/50 ML BAG IVPB ONE (11:17)
[2023-06-17] MEDS: Cefepime 2 GM in Dextrose 2 GM/50 ML BAG IV SCH (22:58)
[2023-06-18 06:57] LABS: Calcium 8.6 mg/dL (8.6-10.3); Magnesium 1.9 mg/dL (1.9-2.7); Phosphorus 2.6 mg/dL (2.5-5.0); Potassium 4.3 mmol/L (3.5-5.0)
[2023-06-18 07:15] LABS: Hematocrit 37.8 % (38-53); Hemoglobin 12.2 g/dL (13.2-16.3); Mean Corpuscular Hemoglobin 29.6 pg (27-33); Mean Corpuscular Hgb Conc 32.3 g/dL (31-36); Mean Corpuscular Volume 91.8 fL (80-97); Mean Platelet Volume 9.7 fL (7.5-11.2); Platelet Count 292 10^3/uL (150-450); Red Blood Count 4.12 10^6/uL (4.06-5.63); White Blood Count 18.3 10^3/uL (3.6-10.2)
[2023-06-18 07:16] LABS: ABS Eosinophils 0.2 10^3/uL (0.0-0.5); ABS Monocytes 1.9 10^3/uL (0.0-1.1); ABS Neutrophils 14.2 10^3/uL (1.5-7.6); Lymphocyte % 10.7 %
[2023-06-18 07:47] LABS: Creatinine, Serum 0.67 mg/dL (0.67-1.17); eGFR CKD-EPI 106.2 (>60)
[2023-06-19 09:18] LABS: Hematocrit 39.3 % (38-53); Hemoglobin 12.9 g/dL (13.2-16.3); Mean Corpuscular Hgb Conc 32.7 g/dL (31-36); Mean Corpuscular Volume 91.9 fL (80-97); Mean Platelet Volume 9.1 fL (7.5-11.2); Platelet Count 310 10^3/uL (150-450); Red Blood Count 4.28 10^6/uL (4.06-5.63); Red Cell Distribution Width 14.7 % (12-17); White Blood Count 20.6 10^3/uL (3.6-10.2)
[2023-06-19 09:38] LABS: Calcium 8.8 mg/dL (8.6-10.3); Creatinine, Serum 0.73 mg/dL (0.67-1.17); eGFR CKD-EPI 103.5 (>60)
[2023-06-19] MEDS ORDERED: Senna TAB 8.6 mg TAB PO PRN (22:27)
[2023-06-19] MEDS ORDERED: Polyethylene Glycol 3350 17 GM PACKET PO SCH (23:00)
[2023-06-19] MEDS: Senna TAB 8.6 mg TAB PO ONE (23:23)
[2023-06-19] MEDS: Polyethylene Glycol 3350 17 GM PACKET PO ONE (23:23)
[2023-06-20] MEDS ORDERED: Polyethylene Glycol 3350 17 GM PACKET PO SCH (08:00)
[2023-06-20] MEDS: Polyethylene Glycol 3350 17 GM PACKET PO SCH (09:12)
[2023-06-20] MEDS: Albuterol/Ipratropium NEB.SOL (2.5/0.5 MG) 3 ML NEB.SOLN INH ONE (11:15)
[2023-06-20 12:15] LABS: C Reactive Protein 6.4 mg/L (<8.01)
[2023-06-20] MEDS: Iodixanol (CONTRAST) 320 MG/ML 100 ML SDV IV ONE (13:14)
[2023-06-21 06:33] LABS: Hematocrit 38.5 % (38-53); Hemoglobin 12.4 g/dL (13.2-16.3); Mean Corpuscular Hemoglobin 29.5 pg (27-33); Mean Corpuscular Hgb Conc 32.1 g/dL (31-36); Mean Corpuscular Volume 91.9 fL (80-97); Mean Platelet Volume 9.2 fL (7.5-11.2); Platelet Count 293 10^3/uL (150-450); Red Blood Count 4.19 10^6/uL (4.06-5.63); Red Cell Distribution Width 15.1 % (12-17)
[2023-06-21 06:49] LABS: Calcium 8.7 mg/dL (8.6-10.3); Creatinine, Serum 0.69 mg/dL (0.67-1.17); Potassium 3.9 mmol/L (3.5-5.0); eGFR CKD-EPI 105.3 (>60)
[2023-06-21 07:04] LABS: ABS Eosinophils 0.1 10^3/uL (0.0-0.5); ABS Lymphocytes 2.2 10^3/uL (1.0-4.8); ABS Monocytes 1.6 10^3/uL (0.0-1.1); ABS Neutrophils 15.1 10^3/uL (1.5-7.6); Eosinophil % 0.7 %; Lymphocyte % 11.6 %
[2023-06-23 06:15] LABS: Calcium 9.2 mg/dL (8.6-10.3); Creatinine, Serum 0.64 mg/dL (0.67-1.17); Potassium 3.7 mmol/L (3.5-5.0); eGFR CKD-EPI 107.7 (>60)
[2023-06-25] MEDS: Albuterol 2.5mg/3 ml (0.083%) NEB.SOLN INH PRN (03:52)
[2023-06-25 09:46] VITALS: BP 143/104
== END 2023-06-25 12:15 | disposition home or self-care (01) | DRG 871 ==
LOC: ED 13:28 → SUATTDRO 15:05 → EDHOLD 15:05 → ICU 15:38 → MEDTELE 06-16 17:44
PROVIDERS: ADMIT Student in an Organized Health Care Education/Training Program; ATTEND Internal Medicine

== ENCOUNTER 2023-07-20 22:47 | Inpatient (IN) ==
[2023-07-20] MEDS: Albuterol 2.5mg/3 ml (0.083%) NEB.SOLN INH SCH (23:20)
[2023-07-21 00:02] LABS: Hematocrit 44.2 % (38-53); Hemoglobin 14.5 g/dL (13.2-16.3); Mean Corpuscular Hemoglobin 30.7 pg (27-33); Mean Corpuscular Hgb Conc 32.7 g/dL (31-36); Mean Corpuscular Volume 93.7 fL (80-97); Mean Platelet Volume 8.4 fL (7.5-11.2); Platelet Count 359 10^3/uL (150-450); Red Blood Count 4.71 10^6/uL (4.06-5.63); Red Cell Distribution Width 16.9 % (12-17); White Blood Count 27.4 10^3/uL (3.6-10.2)
[2023-07-21 00:19] LABS: High Sens Troponin Baseline 30 pg/mL (<20)
[2023-07-21 00:35] LABS: ABS Basophils 0.1 10^3/uL (0.0-0.1); ABS Lymphocytes 0.6 10^3/uL (1.0-4.8); ABS Monocytes 0.4 10^3/uL (0.0-1.1); ABS Neutrophils 26.3 10^3/uL (1.5-7.6); ABS Nucleated RBC 0.01 10^3/ul; Eosinophil % 0.1 %; Lymphocyte % 2.2 %
[2023-07-21 01:04] LABS: PCO2 Arterial 46 mmHg (35-45); PO2 Arterial 83 mmHg (80-100)
[2023-07-21 01:05] LABS: ALT 18 U/L (7-52); Blood Urea Nitrogen 24 mg/dL (6-24); CO2 Carbon Dioxide 30 mmol/L (22-32); Calcium 9.3 mg/dL (8.6-10.3); Chloride 101 mmol/L (101-111); Creatinine, Serum 0.92 mg/dL (0.67-1.17); Glucose 135 mg/dL (70-100); Sodium 143 mmol/L (135-145); eGFR CKD-EPI 94.6 (>60)
[2023-07-21 01:06] LABS: Albumin 3.6 g/dL (3.2-5.2); Albumin/Globulin Ratio 1.1 (1-3); Alkaline Phosphatase 197 U/L (35-149); Globulin 3.2 g/dL (2-4); Total Bilirubin 0.5 mg/dL (0.2-1.0); Total Protein 6.8 g/dL (6.4-8.9)
[2023-07-21 01:13] LABS: Anion Gap 12 mmol/L (2-16)
[2023-07-21 01:26] LABS: High Sensitivity Troponin 1 Hr 33 pg/mL (<20)
[2023-07-21] MEDS ORDERED: Morphine ORAL CONCENTRATE 5 MG/0.25 ML ORAL.SYRIN SL PRN (05:51)
[2023-07-21] MEDS ORDERED: Albuterol (2.5 MG) 0.5 % CONC 0.5 ML NEB.SOLN INH PRN (05:52)
[2023-07-21 05:58] LABS: Vitamin D Total 25(OH) 29.9 ng/mL (20-50)
[2023-07-21] MEDS: Enoxaparin 40 MG/0.4 ML SYR SUBCUT SCH (06:32)
[2023-07-21] MEDS: Furosemide 40 mg/4 ml IV VIAL IV ONE (06:32)
[2023-07-21 06:36] LABS: Hematocrit 39.2 % (38-53); Hemoglobin 12.6 g/dL (13.2-16.3); Mean Corpuscular Hemoglobin 29.9 pg (27-33); Mean Corpuscular Hgb Conc 32.1 g/dL (31-36); Mean Corpuscular Volume 93.1 fL (80-97); Mean Platelet Volume 7.9 fL (7.5-11.2); Platelet Count 331 10^3/uL (150-450); Red Blood Count 4.21 10^6/uL (4.06-5.63); Red Cell Distribution Width 16.7 % (12-17); White Blood Count 30.9 10^3/uL (3.6-10.2)
[2023-07-21 06:40] LABS: ABS Lymphocytes 0.3 10^3/uL (1.0-4.8); ABS Monocytes 0.4 10^3/uL (0.0-1.1); ABS Neutrophils 30.2 10^3/uL (1.5-7.6); ABS Nucleated RBC 0.02 10^3/ul; Eosinophil % 0.1 %; Lymphocyte % 0.9 %
[2023-07-21 06:58] LABS: Potassium Redraw 4.2 mmol/L (3.5-5.0)
[2023-07-21 07:01] LABS: Calcium 8.8 mg/dL (8.6-10.3); Creatinine, Serum 0.86 mg/dL (0.67-1.17); Potassium 4.1 mmol/L (3.5-5.0); eGFR CKD-EPI 98.5 (>60)
[2023-07-21] MEDS: Polyethylene Glycol 3350 17 GM PACKET PO SCH (08:26)
[2023-07-21] MEDS: Cholecalciferol (VIT D3) 1,000 unit TAB PO SCH (08:27)
[2023-07-21] MEDS: Senna TAB 8.6 mg TAB PO SCH (08:38)
[2023-07-21] MEDS: FLUTICAS/UMECLI/VILANT 100-62.5-25 MDI (NF) INH SCH (10:53)
[2023-07-22 06:30] LABS: Hematocrit 40.1 % (38-53); Hemoglobin 13.3 g/dL (13.2-16.3); Mean Corpuscular Hemoglobin 30.5 pg (27-33); Mean Corpuscular Volume 92.2 fL (80-97); Mean Platelet Volume 8.6 fL (7.5-11.2); Platelet Count 327 10^3/uL (150-450); Red Blood Count 4.35 10^6/uL (4.06-5.63); Red Cell Distribution Width 16.5 % (12-17); White Blood Count 27.5 10^3/uL (3.6-10.2)
[2023-07-22 06:46] LABS: Calcium 9.1 mg/dL (8.6-10.3); Creatinine, Serum 0.9 mg/dL (0.67-1.17); Potassium 4.3 mmol/L (3.5-5.0); eGFR CKD-EPI 97.2 (>60)
[2023-07-22 08:10] LABS: ABS Lymphocytes 1.3 10^3/uL (1.0-4.8); ABS Monocytes 2.2 10^3/uL (0.0-1.1); ABS Neutrophils 23.9 10^3/uL (1.5-7.6); Lymphocyte % 4.8 %
[2023-07-23] MEDS: Polyethylene Glycol 3350 17 GM PACKET PO SCH (01:19)
[2023-07-23 06:02] LABS: Hematocrit 38.8 % (38-53); Hemoglobin 12.8 g/dL (13.2-16.3); Mean Corpuscular Hemoglobin 30.7 pg (27-33); Mean Corpuscular Hgb Conc 32.9 g/dL (31-36); Mean Corpuscular Volume 93.2 fL (80-97); Mean Platelet Volume 8.5 fL (7.5-11.2); Platelet Count 316 10^3/uL (150-450); Red Blood Count 4.17 10^6/uL (4.06-5.63); Red Cell Distribution Width 16.7 % (12-17)
[2023-07-23 06:15] LABS: ABS Lymphocytes 1.2 10^3/uL (1.0-4.8); ABS Monocytes 2.1 10^3/uL (0.0-1.1); ABS Neutrophils 16.7 10^3/uL (1.5-7.6); ABS Nucleated RBC 0.01 10^3/ul; Eosinophil % 0.1 %; Lymphocyte % 6.1 %
[2023-07-23 06:20] LABS: Creatinine, Serum 1.03 mg/dL (0.67-1.17); HDL Cholesterol 53.6 mg/dL; Potassium 3.9 mmol/L (3.5-5.0); eGFR CKD-EPI 82.6 (>60)
[2023-07-23] MEDS: Morphine ORAL CONCENTRATE 5 MG/0.25 ML ORAL.SYRIN SL PRN (13:17)
[2023-07-25 06:01] LABS: Hematocrit 38.3 % (38-53); Hemoglobin 12.5 g/dL (13.2-16.3); Mean Corpuscular Hemoglobin 30.2 pg (27-33); Mean Corpuscular Hgb Conc 32.6 g/dL (31-36); Mean Corpuscular Volume 92.6 fL (80-97); Mean Platelet Volume 8.8 fL (7.5-11.2); Platelet Count 306 10^3/uL (150-450); Red Blood Count 4.13 10^6/uL (4.06-5.63); Red Cell Distribution Width 16.3 % (12-17); White Blood Count 17.9 10^3/uL (3.6-10.2)
[2023-07-25 06:17] LABS: Calcium 8.7 mg/dL (8.6-10.3); Creatinine, Serum 0.88 mg/dL (0.67-1.17); Magnesium 1.8 mg/dL (1.9-2.7); Phosphorus 3.3 mg/dL (2.5-5.0); Potassium 4.2 mmol/L (3.5-5.0); eGFR CKD-EPI 97.8 (>60)
[2023-07-25 07:45] LABS: ABS Basophils 0.1 10^3/uL (0.0-0.1); ABS Lymphocytes 1.3 10^3/uL (1.0-4.8); ABS Monocytes 1.6 10^3/uL (0.0-1.1); ABS Neutrophils 14.9 10^3/uL (1.5-7.6); ABS Nucleated RBC 0.01 10^3/ul; Eosinophil % 0.1 %; Lymphocyte % 7.1 %
[2023-07-25 20:46] LABS: Rapid COVID-19 Molecular Undetected (Undetected)
[2023-07-26 05:50] VITALS: BP 127/94
== END 2023-07-26 10:00 | disposition hospice, home (50) | DRG 189 ==
LOC: EDHOLD 22:47 → ED 22:47 → SUATTDRO 07-21 05:05 → EDHOLD 07-21 08:21 → MED 07-21 13:26 → SUATTDRO 07-23 11:49
PROVIDERS: ADMIT Hospitalist; ATTEND Internal Medicine